=== PATIENT | female | born 1935 | race African-American/Black ===

== ENCOUNTER 2016-09-11 08:12 | Inpatient (IN) | payer MEDICAID ==
[~2016-09-11] VITALS: Ht 162.5 cm; Wt 88.2 kg
[2016-09-11 08:20] VITALS: BP 131/73
[2016-09-11 09:03] LABS: BILIRUBIN NEGATIVE (NEGATIVE); BLOOD NEGATIVE (NEGATIVE); CLARITY CLEAR (CLEAR); COLOR YELLOW (YELLOW); GLUCOSE NEGATIVE (NEGATIVE); KETONE NEGATIVE (NEGATIVE); LEUKO ESTERASE NEGATIVE (NEGATIVE); NITRITE NEGATIVE (NEGATIVE); PH 6.5 (5.0-9.0); PROTEIN NEGATIVE (NEGATIVE)
[2016-09-11 09:15] LABS: BASO % 0.2 % (0.0-1.0); EOS # 0.1 10*3/uL (0.0-0.4); HEMATOCRIT 34.9 % (37.0-47.0); HEMOGLOBIN 11.3 g/dl (12.0-16.0); LYMPH # 1.7 10*3/uL (1.3-4.4); LYMPH % 28.4 % (27.0-41.0); MEAN CELL VOLUME 93.1 fl (81.0-99.0); MEAN CORPUSCULAR HGB 30.1 pg (27.0-31.0); MEAN CORPUSCULAR HGB CONC 32.4 g/dl (33.0-37.0); MEAN PLATELET VOLUME 10.3 fl (9.6-12.3); MONO # 0.6 10*3/uL (0.1-1.0); MONO % 10.6 % (3.0-9.0); NEUT # 3.5 10*3/uL (2.3-7.9); NEUT % 59.5 % (47.0-73.0); PLATELET COUNT AUTOMATED 212 10*3/uL (130-400); RED BLOOD COUNT 3.75 10*6/uL (4.10-5.10); RED CELL DISTRI WIDTH 16.5 % (0-14.5); WHITE BLOOD COUNT 5.9 10*3/uL (4.8-10.8)
[2016-09-11 09:22] LABS: BACTERIA TRACE; MUCOUS 1+; RBC 0-2 rbc/hpf (0-2); URINE REFLEX COMMENT NO (NO)
[2016-09-11] MEDS ORDERED: AGGRENOX ER 251 CER PO (09:28)
[2016-09-11] MEDS ORDERED: CLARITIN10 MG PO (09:29)
[2016-09-11] MEDS ORDERED: ATORVASTATIN CA10 M1 PO (09:29)
[2016-09-11] MEDS ORDERED: GLIPIZIDE10 M2 PO (09:29)
[2016-09-11] MEDS ORDERED: LASIX20 MG PO (09:29)
[2016-09-11 09:30] LABS: ALBUMIN 2.8 gm/dl (3.1-4.5); ALKALINE PHOSPHATASE 55 U/L (45-117); BILIRUBIN, TOTAL 0.7 mg/dl (0.2-1.0); BUN 6 mg/dl (7-24); CARBON DIOXIDE 30 mmol/L (21-32); CHLORIDE 105 mmol/L (98-107); CPK 49 U/L (26-192); EST GLOM FILT AFRICAN AMERICAN > 60 ml/min; GLUCOSE 87 mg/dL (65-99); MAGNESIUM 1.5 mg/dL (1.5-2.1); SGOT/AST 17 IU/L (3-35); SGPT/ALT 20 U/L (12-78); SODIUM 143 mmol/L (136-145); TOTAL PROTEIN 6.2 gm/dL (6.4-8.2)
[2016-09-11] MEDS ORDERED: PENTOXIFYLLINE400 MG PO (09:30)
[2016-09-11] MEDS ORDERED: METFORMIN500 MG PO (09:30)
[2016-09-11] MEDS ORDERED: POTASSIUM CHLO10 ME4 PO (09:31)
[2016-09-11] MEDS ORDERED: PIOGLITAZONE HC30 MG PO (09:31)
[2016-09-11] MEDS ORDERED: TRAZODONE100 MG PO (09:32)
[2016-09-11] MEDS ORDERED: MILK OF MA400 MG/52 PO (09:33)
[2016-09-11] MEDS ORDERED: TYLENOL EXTRA500 M2 PO (09:33)
[2016-09-11] MEDS ORDERED: ATIVAN0.5 MG PO (09:34)
[2016-09-11 09:35] LABS: C-REACTIVE PROTEIN < 0.29 MG/DL (0-0.3); CKMB < 0.5 ng/ml (0.5-3.6); TROPONIN I < 0.015 ng/ml (<0.045)
[2016-09-11 10:03] LABS: PROTHROMBIN TIME 10.9 SECONDS (9.0-12.4)
[2016-09-11 11:12] LABS: LA>2 REFLEX 2 HR DRAW NOW
[2016-09-11 11:38] LABS: LA>2 RFLX FOLLOW UP AT 2 HRS 2.4 mmol/L (0.4-2.0)
[2016-09-11 12:00] VITALS: BP 93/70
[2016-09-11 13:25] LABS: LA>2 REFLEX 4 HR DRAW NOW
[2016-09-11 15:46] VITALS: BP 119/34
[2016-09-11 20:00] VITALS: BP 141/84
[2016-09-12 06:12] LABS: BASO % 0.4 % (0.0-1.0); EOS # 0.1 10*3/uL (0.0-0.4); EOS % 1.7 % (1.0-4.0); HEMATOCRIT 32.7 % (37.0-47.0); HEMOGLOBIN 10.5 g/dl (12.0-16.0); LYMPH # 1.5 10*3/uL (1.3-4.4); LYMPH % 32.1 % (27.0-41.0); MEAN CELL VOLUME 91.6 fl (81.0-99.0); MEAN CORPUSCULAR HGB 29.4 pg (27.0-31.0); MEAN CORPUSCULAR HGB CONC 32.1 g/dl (33.0-37.0); MEAN PLATELET VOLUME 10.5 fl (9.6-12.3); MONO # 0.5 10*3/uL (0.1-1.0); MONO % 10.3 % (3.0-9.0); NEUT # 2.6 10*3/uL (2.3-7.9); NEUT % 55.3 % (47.0-73.0); PLATELET COUNT AUTOMATED 200 10*3/uL (130-400); RED BLOOD COUNT 3.57 10*6/uL (4.10-5.10); RED CELL DISTRI WIDTH 16.1 % (0-14.5); WHITE BLOOD COUNT 4.6 10*3/uL (4.8-10.8)
[2016-09-12 06:19] LABS: HEMOGLOBIN A1c 6.8 % (4.8-5.6)
[2016-09-12 06:27] LABS: BUN 5 mg/dl (7-24); CARBON DIOXIDE 31 mmol/L (21-32); CHLORIDE 106 mmol/L (98-107); CHOLESTEROL 137 mg/dL (<200); EST GLOM FILT AFRICAN AMERICAN > 60 ml/min; FREE T4 0.98 ng/dl (0.76-1.46); GLUCOSE 87 mg/dL (65-99); HDL CHOLESTEROL 91 mg/dl (40-60); LDL CHOLESTEROL 34 mg/dL (9-159); POTASSIUM 3.7 mmol/L (3.5-5.1); SODIUM 142 mmol/L (136-145); TRIGLYCERIDES 62 mg/dl (<150); VLDL CHOLESTEROL 12 mg/dL (6-40)
[2016-09-12 07:33] LABS: VITAMIN D, 25-HYDROXY 6.3 ng/mL (30-100)
[2016-09-12 07:34] LABS: FOLIC ACID 5.99 ng/mL (>5.38)
[2016-09-12 08:00] VITALS: BP 136/78
[2016-09-12 12:00] VITALS: BP 104/61
== END 2016-09-12 15:03 | disposition home or self-care (01) | DRG 392 ==
LOC: ED 08:12 → EDHOLD 12:38 → 4E 12:38
PROVIDERS: Emergency Medicine; Internal Medicine Hospice and Palliative Medicine
DX: K59.00 Constipation, unspecified (principal); E87.2 Acidosis; E44.0 Moderate protein-calorie malnutrition; E11.65 Type 2 diabetes mellitus with hyperglycemia; K80.20 Calculus of gallbladder without cholecystitis without obstruction; K42.9 Umbilical hernia without obstruction or gangrene; D64.9 Anemia, unspecified; K57.30 Diverticulosis of large intestine without perforation or abscess without bleeding; D25.9 Leiomyoma of uterus, unspecified; I25.10 Atherosclerotic heart disease of native coronary artery without angina pectoris; E78.00 Pure hypercholesterolemia, unspecified; J30.2 Other seasonal allergic rhinitis; F41.1 Generalized anxiety disorder; E66.09 Other obesity due to excess calories; I50.9 Heart failure, unspecified; E78.1 Pure hyperglyceridemia; I25.2 Old myocardial infarction; Z80.0 Family history of malignant neoplasm of digestive organs; Z79.1 Long term (current) use of non-steroidal anti-inflammatories (NSAID); Z86.73 Personal history of transient ischemic attack (TIA), and cerebral infarction without residual deficits; Z79.4 Long term (current) use of insulin; Z79.82 Long term (current) use of aspirin; Z79.899 Other long term (current) drug therapy; Z79.84 Long term (current) use of oral hypoglycemic drugs; Z68.33 Body mass index [BMI] 33.0-33.9, adult

== ENCOUNTER 2016-10-10 05:06 | Inpatient (IN) | payer MEDICAID ==
[~2016-10-10] VITALS: Ht 165.1 cm; Wt 96.7 kg
[2016-10-10] VITALS (11 sets, daily range): BP systolic 108–169; BP diastolic 60–88
[~2016-10-10 05:06] MED LIST: AGGRENOX ER 251 CER PO; ATIVAN0.5 MG PO; ATORVASTATIN CA10 M1 PO; CLARITIN10 MG PO; GLIPIZIDE10 M2 PO; LASIX20 MG PO; METFORMIN500 MG PO; MILK OF MA400 MG/52 PO; PENTOXIFYLLINE400 MG PO; PIOGLITAZONE HC30 MG PO; POTASSIUM CHLO10 ME4 PO; TRAZODONE100 MG PO; TYLENOL EXTRA500 M2 PO
[2016-10-10] MEDS ORDERED: METFORMIN500 MG PO (05:42)
[2016-10-10 06:31] LABS: BASO % 0.2 % (0.0-1.0); EOS % 0.2 % (1.0-4.0); HEMATOCRIT 35.3 % (37.0-47.0); HEMOGLOBIN 11.5 g/dl (12.0-16.0); LYMPH # 1.2 10*3/uL (1.3-4.4); LYMPH % 23.9 % (27.0-41.0); MEAN CELL VOLUME 93.1 fl (81.0-99.0); MEAN CORPUSCULAR HGB 30.3 pg (27.0-31.0); MEAN CORPUSCULAR HGB CONC 32.6 g/dl (33.0-37.0); MEAN PLATELET VOLUME 10.2 fl (9.6-12.3); MONO # 0.3 10*3/uL (0.1-1.0); MONO % 6.8 % (3.0-9.0); NEUT # 3.3 10*3/uL (2.3-7.9); NEUT % 68.5 % (47.0-73.0); PLATELET COUNT AUTOMATED 211 10*3/uL (130-400); RED BLOOD COUNT 3.79 10*6/uL (4.10-5.10); RED CELL DISTRI WIDTH 17.3 % (0-14.5); WHITE BLOOD COUNT 4.9 10*3/uL (4.8-10.8)
[2016-10-10 06:47] LABS: ALBUMIN 2.9 gm/dl (3.1-4.5); ALKALINE PHOSPHATASE 52 U/L (45-117); BUN 9 mg/dl (7-24); CARBON DIOXIDE 27 mmol/L (21-32); CHLORIDE 103 mmol/L (98-107); EST GLOM FILT AFRICAN AMERICAN > 60 ml/min; GLUCOSE 96 mg/dL (65-99); MAGNESIUM 1.4 mg/dL (1.5-2.1); POTASSIUM 3.6 mmol/L (3.5-5.1); SGOT/AST 20 IU/L (3-35); SGPT/ALT 20 U/L (12-78); SODIUM 139 mmol/L (136-145); TOTAL PROTEIN 6.4 gm/dL (6.4-8.2)
[2016-10-10 06:51] LABS: BILIRUBIN, TOTAL 0.8 mg/dl (0.2-1.0); HEMOGLOBIN A1c 6.4 % (4.8-5.6); TROPONIN I 0.019 ng/ml (<0.045)
[2016-10-10 06:54] LABS: THYROID STIM HORMONE (HS) 0.333 uIU/ml (0.358-4.75)
[2016-10-10] MEDS ORDERED: BISAC-EVAC10 MG RC (16:08)
[2016-10-11] VITALS: BP 120/57
[2016-10-11 08:00] VITALS: BP 129/66
[2016-10-11 10:07] LABS: BASO % 0.6 % (0.0-1.0); EOS # 0.1 10*3/uL (0.0-0.4); HEMATOCRIT 35.7 % (37.0-47.0); HEMOGLOBIN 11.7 g/dl (12.0-16.0); LYMPH # 1.9 10*3/uL (1.3-4.4); LYMPH % 37.2 % (27.0-41.0); MEAN CELL VOLUME 92.2 fl (81.0-99.0); MEAN CORPUSCULAR HGB 30.2 pg (27.0-31.0); MEAN CORPUSCULAR HGB CONC 32.8 g/dl (33.0-37.0); MEAN PLATELET VOLUME 10.4 fl (9.6-12.3); MONO # 0.4 10*3/uL (0.1-1.0); MONO % 8.7 % (3.0-9.0); NEUT # 2.6 10*3/uL (2.3-7.9); NEUT % 50.9 % (47.0-73.0); PLATELET COUNT AUTOMATED 225 10*3/uL (130-400); RED BLOOD COUNT 3.87 10*6/uL (4.10-5.10); RED CELL DISTRI WIDTH 17.2 % (0-14.5); WHITE BLOOD COUNT 5.1 10*3/uL (4.8-10.8)
[2016-10-11 10:24] LABS: BUN 5 mg/dl (7-24); CARBON DIOXIDE 25 mmol/L (21-32); CHLORIDE 105 mmol/L (98-107); EST GLOM FILT AFRICAN AMERICAN > 60 ml/min; GLUCOSE 108 mg/dL (65-99); MAGNESIUM 1.5 mg/dL (1.5-2.1); PHOSPHOROUS 2.6 mg/dL (2.5-4.9); SODIUM 143 mmol/L (136-145)
[2016-10-11 12:00] VITALS: BP 155/80
[2016-10-11 16:06] VITALS: BP 126/79
== END 2016-10-11 18:18 | DRG 638 ==
LOC: ED 05:06 → EDHOLD 06:32 → 4E 06:32 → EDHOLD 07:39 → 4E 14:24
PROVIDERS: Emergency Medicine Emergency Medical Services; Internal Medicine
DX: E11.649 Type 2 diabetes mellitus with hypoglycemia without coma (principal); E44.0 Moderate protein-calorie malnutrition; F03.90 Unspecified dementia, unspecified severity, without behavioral disturbance, psychotic disturbance, mood disturbance, and anxiety; I50.9 Heart failure, unspecified; E83.42 Hypomagnesemia; R79.89 Other specified abnormal findings of blood chemistry; R03.0 Elevated blood-pressure reading, without diagnosis of hypertension; I25.10 Atherosclerotic heart disease of native coronary artery without angina pectoris; F41.1 Generalized anxiety disorder; E78.00 Pure hypercholesterolemia, unspecified; D64.9 Anemia, unspecified; E66.09 Other obesity due to excess calories; Z86.73 Personal history of transient ischemic attack (TIA), and cerebral infarction without residual deficits; I25.2 Old myocardial infarction; Z68.35 Body mass index [BMI] 35.0-35.9, adult; Z80.8 Family history of malignant neoplasm of other organs or systems; Z79.82 Long term (current) use of aspirin; Z79.899 Other long term (current) drug therapy; G45.9 Transient cerebral ischemic attack, unspecified

== ENCOUNTER 2016-12-24 12:01 | Emergency (ER) | payer MEDICAID ==
[~2016-12-24] VITALS: Ht 170.1 cm; Wt 68.0 kg
[~2016-12-24 12:01] MED LIST changes: +BISAC-EVAC10 MG RC
[2016-12-24 12:27] LABS: BASO % 0.5 % (0.0-1.0); EOS # 0.1 10*3/uL (0.0-0.4); EOS % 0.9 % (1.0-4.0); HEMATOCRIT 41.5 % (37.0-47.0); HEMOGLOBIN 13.9 g/dl (12.0-16.0); LYMPH # 1.8 10*3/uL (1.3-4.4); LYMPH % 27.5 % (27.0-41.0); MEAN CELL VOLUME 93.5 fl (81.0-99.0); MEAN CORPUSCULAR HGB 31.3 pg (27.0-31.0); MEAN CORPUSCULAR HGB CONC 33.5 g/dl (33.0-37.0); MEAN PLATELET VOLUME 10.6 fl (9.6-12.3); MONO # 0.5 10*3/uL (0.1-1.0); MONO % 7.6 % (3.0-9.0); NEUT # 4.2 10*3/uL (2.3-7.9); NEUT % 62.7 % (47.0-73.0); PLATELET COUNT AUTOMATED 201 10*3/uL (130-400); RED BLOOD COUNT 4.44 10*6/uL (4.10-5.10); RED CELL DISTRI WIDTH 14.4 % (0-14.5); WHITE BLOOD COUNT 6.6 10*3/uL (4.8-10.8)
[2016-12-24 12:39] LABS: CREATININE 1.07 mg/dL (0.55-1.02); POTASSIUM 3.1 mmol/L (3.5-5.1)
[2016-12-24 12:39] LABS: BILIRUBIN NEGATIVE (NEGATIVE); BLOOD NEGATIVE (NEGATIVE); CLARITY CLEAR (CLEAR); COLOR YELLOW (YELLOW); GLUCOSE NEGATIVE (NEGATIVE); KETONE NEGATIVE (NEGATIVE); LEUKO ESTERASE NEGATIVE (NEGATIVE); NITRITE NEGATIVE (NEGATIVE); PH 5.5 (5.0-9.0); SPECIFIC GRAVITY <= 1.005 (1.005-1.030); UROBILINOGEN 0.2 E.U./dl (0.2-1.0)
[2016-12-24 12:47] LABS: RBC 0-2 rbc/hpf (0-2)
== END 2016-12-24 13:46 | disposition home or self-care (01) ==
LOC: ED 12:01
PROVIDERS: Emergency Medicine
DX: E87.6 Hypokalemia (principal); R32 Unspecified urinary incontinence; M25.561 Pain in right knee; I25.10 Atherosclerotic heart disease of native coronary artery without angina pectoris; I25.2 Old myocardial infarction; E78.00 Pure hypercholesterolemia, unspecified; I50.9 Heart failure, unspecified; Z86.73 Personal history of transient ischemic attack (TIA), and cerebral infarction without residual deficits; E11.65 Type 2 diabetes mellitus with hyperglycemia; W06.XXXA Fall from bed, initial encounter; Z79.899 Other long term (current) drug therapy; Y93.89 Activity, other specified; Y92.89 Other specified places as the place of occurrence of the external cause; Y99.8 Other external cause status

== ENCOUNTER 2016-12-26 12:42 | Emergency (ER) | payer MEDICAID ==
[~2016-12-26] VITALS: Wt 68.0 kg
[2016-12-26 13:48] LABS: ALBUMIN 2.5 gm/dl (3.1-4.5); ALKALINE PHOSPHATASE 63 U/L (45-117); BUN 10 mg/dl (7-24); CHLORIDE 105 mmol/L (98-107); POTASSIUM 5.1 mmol/L (3.5-5.1); SGOT/AST 21 IU/L (3-35); SGPT/ALT 20 U/L (12-78); SODIUM 136 mmol/L (136-145)
== END 2016-12-26 14:11 | disposition home or self-care (01) ==
LOC: ED 12:42
PROVIDERS: Physician Assistant
DX: M25.561 Pain in right knee (principal); Z79.899 Other long term (current) drug therapy; W06.XXXA Fall from bed, initial encounter; Y93.89 Activity, other specified; Y92.89 Other specified places as the place of occurrence of the external cause; Y99.9 Unspecified external cause status

== ENCOUNTER 2016-12-28 22:37 | Inpatient (IN) | payer MEDICAID ==
[~2016-12-28] VITALS: Ht 160 cm; Wt 78.3 kg
--- NOTE | ~2016-12-28 | EKG ---
[place], [place] ELECTROCARDIOGRAM REPORT NAME: AKIN YOUNGBLOOD UNIT #: [id number] ROOM: 526 DOCTOR: LIANA PERAZA,PERICO BIRTHDATE: [birth year] DOS: 12/30/2016 TIME: 2313 hours. INTERPRETATION: 1. Sinus rhythm. 2. Nonspecific ST-T changes in the lateral leads. 3. Prolonged QT, consider electrolyte abnormality. PERICO GAINES MD CM:EKGRPT:ELECTROCARDIOGRAM REPORT [id number] PERICO GAINES MD
[2016-12-28 22:40] VITALS: BP 130/83
[2016-12-28 22:59] LABS: BASO % 0.3 % (0.0-1.0); EOS % 0.2 % (1.0-4.0); HEMATOCRIT 38.4 % (37.0-47.0); LYMPH # 0.9 10*3/uL (1.3-4.4); LYMPH % 14.4 % (27.0-41.0); MEAN CELL VOLUME 92.3 fl (81.0-99.0); MEAN CORPUSCULAR HGB 31.3 pg (27.0-31.0); MEAN CORPUSCULAR HGB CONC 33.9 g/dl (33.0-37.0); MEAN PLATELET VOLUME 10.9 fl (9.6-12.3); MONO # 0.4 10*3/uL (0.1-1.0); MONO % 6.5 % (3.0-9.0); NEUT # 4.7 10*3/uL (2.3-7.9); NEUT % 78.3 % (47.0-73.0); PLATELET COUNT AUTOMATED 241 10*3/uL (130-400); RED BLOOD COUNT 4.16 10*6/uL (4.10-5.10); RED CELL DISTRI WIDTH 14.9 % (0-14.5)
[2016-12-28 23:43] LABS: ALBUMIN 2.6 gm/dl (3.1-4.5); ALKALINE PHOSPHATASE 66 U/L (45-117); BUN 8 mg/dl (7-24); CHLORIDE 102 mmol/L (98-107); CREATININE 1.03 mg/dL (0.55-1.02); LIPASE 118 U/L (73-393); MAGNESIUM 1.3 mg/dL (1.5-2.1); POTASSIUM 4.9 mmol/L (3.5-5.1); SGOT/AST 24 IU/L (3-35); SGPT/ALT 21 U/L (12-78); SODIUM 138 mmol/L (136-145); TOTAL PROTEIN 6.5 gm/dL (6.4-8.2)
[2016-12-28 23:45] LABS: TROPONIN I 0.016 ng/ml (<0.045)
[2016-12-29 02:20] VITALS: BP 128/71
[2016-12-29 02:37] LABS: BILIRUBIN 1+ (NEGATIVE); BLOOD NEGATIVE (NEGATIVE); CLARITY SL CLOUDY (CLEAR); COLOR YELLOW (YELLOW); GLUCOSE NEGATIVE (NEGATIVE); KETONE NEGATIVE (NEGATIVE); LEUKO ESTERASE TRACE (NEGATIVE); NITRITE POSITIVE (NEGATIVE); PH 5.5 (5.0-9.0); SPECIFIC GRAVITY >= 1.030 (1.005-1.030)
[2016-12-29 02:42] LABS: BACTERIA 3+
[2016-12-29 03:00] VITALS: BP 100/55
[2016-12-29 07:03] LABS: BASO % 0.3 % (0.0-1.0); EOS % 0.2 % (1.0-4.0); HEMOGLOBIN 11.7 g/dl (12.0-16.0); LYMPH # 1.4 10*3/uL (1.3-4.4); LYMPH % 24.5 % (27.0-41.0); MEAN CELL VOLUME 93.6 fl (81.0-99.0); MEAN CORPUSCULAR HGB 31.3 pg (27.0-31.0); MEAN CORPUSCULAR HGB CONC 33.4 g/dl (33.0-37.0); MEAN PLATELET VOLUME 10.2 fl (9.6-12.3); MONO # 0.5 10*3/uL (0.1-1.0); MONO % 8.9 % (3.0-9.0); NEUT # 3.8 10*3/uL (2.3-7.9); NEUT % 65.9 % (47.0-73.0); PLATELET COUNT AUTOMATED 234 10*3/uL (130-400); RED BLOOD COUNT 3.74 10*6/uL (4.10-5.10); RED CELL DISTRI WIDTH 14.8 % (0-14.5); WHITE BLOOD COUNT 5.7 10*3/uL (4.8-10.8)
[2016-12-29 07:34] LABS: ALBUMIN 2.5 gm/dl (3.1-4.5); BUN 7 mg/dl (7-24); CHLORIDE 104 mmol/L (98-107); CHOLESTEROL 181 mg/dL (<200); CREATININE 0.81 mg/dL (0.55-1.02); MAGNESIUM 1.4 mg/dL (1.5-2.1); PHOSPHOROUS 2.8 mg/dL (2.5-4.9); SGOT/AST 19 IU/L (3-35); SGPT/ALT 20 U/L (12-78); SODIUM 142 mmol/L (136-145); TRIGLYCERIDES 87 mg/dl (<150); VLDL CHOLESTEROL 17 mg/dL (6-40)
[2016-12-29 07:35] LABS: INTERNATIONAL NORM RATIO 1.1 (2.0-3.5)
[2016-12-29 07:41] LABS: ALKALINE PHOSPHATASE 59 U/L (45-117); HDL CHOLESTEROL 73 mg/dl (40-60); LDL CHOLESTEROL 91 mg/dL (9-159); THYROID STIM HORMONE (HS) 0.958 uIU/ml (0.358-4.75); TOTAL PROTEIN 5.9 gm/dL (6.4-8.2)
[2016-12-29 07:42] LABS: POTASSIUM 3.9 mmol/L (3.5-5.1)
[2016-12-29 08:00] VITALS: BP 110/59
[2016-12-29] MEDS ORDERED: MOM30 M1 PO (10:57)
[2016-12-29] MEDS ORDERED: VITAMIN D50000 UNIT PO (10:58)
[2016-12-29 12:00] VITALS: BP 115/55
[2016-12-29 16:00] VITALS: BP 100/60
[2016-12-29 20:00] VITALS: BP 111/75
[2016-12-30] VITALS: BP 114/68
[2016-12-30 04:00] VITALS: BP 114/68
[2016-12-30 06:40] LABS: BASO % 0.8 % (0.0-1.0); EOS # 0.1 10*3/uL (0.0-0.4); EOS % 1.7 % (1.0-4.0); HEMATOCRIT 34.8 % (37.0-47.0); HEMOGLOBIN 11.3 g/dl (12.0-16.0); LYMPH # 1.6 10*3/uL (1.3-4.4); LYMPH % 33.5 % (27.0-41.0); MEAN CELL VOLUME 95.6 fl (81.0-99.0); MEAN CORPUSCULAR HGB CONC 32.5 g/dl (33.0-37.0); MEAN PLATELET VOLUME 10.3 fl (9.6-12.3); MONO # 0.4 10*3/uL (0.1-1.0); MONO % 9.1 % (3.0-9.0); NEUT # 2.6 10*3/uL (2.3-7.9); NEUT % 54.7 % (47.0-73.0); PLATELET COUNT AUTOMATED 222 10*3/uL (130-400); RED BLOOD COUNT 3.64 10*6/uL (4.10-5.10); WHITE BLOOD COUNT 4.8 10*3/uL (4.8-10.8)
[2016-12-30 06:42] LABS: BUN 6 mg/dl (7-24); CHLORIDE 109 mmol/L (98-107); CREATININE 0.73 mg/dL (0.55-1.02); POTASSIUM 3.7 mmol/L (3.5-5.1); SODIUM 142 mmol/L (136-145)
[2016-12-30 08:00] VITALS: BP 110/50
[2016-12-30 12:00] VITALS: BP 107/84
[2016-12-30 16:00] VITALS: BP 124/54; BP 84/68
[2016-12-30 20:00] VITALS: BP 119/71
[2016-12-31] VITALS: BP 122/62
[2016-12-31 07:05] LABS: ALBUMIN 2.3 gm/dl (3.1-4.5); ALKALINE PHOSPHATASE 55 U/L (45-117); BUN 4 mg/dl (7-24); CHLORIDE 112 mmol/L (98-107); CREATININE 0.69 mg/dL (0.55-1.02); POTASSIUM 3.3 mmol/L (3.5-5.1); SGOT/AST 20 IU/L (3-35); SGPT/ALT 17 U/L (12-78); SODIUM 142 mmol/L (136-145); TOTAL PROTEIN 5.5 gm/dL (6.4-8.2)
[2016-12-31 08:00] VITALS: BP 121/56
[2016-12-31 12:00] VITALS: BP 112/68
[2016-12-31 16:00] VITALS: BP 112/66
[2016-12-31 20:00] VITALS: BP 118/66
[2017-01-01] VITALS: BP 108/83
[2017-01-01 07:48] LABS: BUN 3 mg/dl (7-24); CHLORIDE 113 mmol/L (98-107); CREATININE 0.76 mg/dL (0.55-1.02); SODIUM 145 mmol/L (136-145)
[2017-01-01 07:52] LABS: POTASSIUM 4.5 mmol/L (3.5-5.1)
[2017-01-01 08:00] VITALS: BP 130/70
[2017-01-01 11:04] LABS: HEMATOCRIT 35.4 % (37.0-47.0); HEMOGLOBIN 12.3 g/dl (12.0-16.0); MEAN CELL VOLUME 92.4 fl (81.0-99.0); MEAN CORPUSCULAR HGB 32.1 pg (27.0-31.0); MEAN CORPUSCULAR HGB CONC 34.7 g/dl (33.0-37.0); MEAN PLATELET VOLUME 10.7 fl (9.6-12.3); PLATELET COUNT AUTOMATED 258 10*3/uL (130-400); RED BLOOD COUNT 3.83 10*6/uL (4.10-5.10); RED CELL DISTRI WIDTH 15.2 % (0-14.5); WHITE BLOOD COUNT 6.2 10*3/uL (4.8-10.8)
[2017-01-01 11:22] LABS: ACANTHOCYTES FEW; ATYPICAL LYMPHS 1 % (0-0); SCHISTOCYTES FEW; TOTAL CELLS COUNTED 100 #CELLS
[2017-01-01 11:23] LABS: BURR CELLS FEW; PLATELET SUFFICIENCY NORMAL (NORMAL)
[2017-01-01] MEDS ORDERED: NATURE'S BLEND F1 MG PO (12:04)
[2017-01-01] MEDS ORDERED: AMINOPHYLLIN200 MG PO (12:04)
[2017-01-01] MEDS ORDERED: PANTOPRAZOLE SO40 MG PO (12:06)
== END 2017-01-01 12:52 | disposition home or self-care (01) | DRG 683 ==
LOC: ED 22:37 → 5E 12-29 02:20 → EDHOLD 12-29 02:20 → 5E 12-29 02:33
PROVIDERS: Family Medicine; Hospitalist; Student in an Organized Health Care Education/Training Program; ADMIT Emergency Medicine
DX: N17.9 Acute kidney failure, unspecified (principal); N30.00 Acute cystitis without hematuria; E44.0 Moderate protein-calorie malnutrition; F03.90 Unspecified dementia, unspecified severity, without behavioral disturbance, psychotic disturbance, mood disturbance, and anxiety; I50.9 Heart failure, unspecified; B96.20 Unspecified Escherichia coli [E. coli] as the cause of diseases classified elsewhere; E11.9 Type 2 diabetes mellitus without complications; E53.8 Deficiency of other specified B group vitamins; E86.0 Dehydration; K29.70 Gastritis, unspecified, without bleeding; E87.6 Hypokalemia; K57.30 Diverticulosis of large intestine without perforation or abscess without bleeding; I25.10 Atherosclerotic heart disease of native coronary artery without angina pectoris; F41.1 Generalized anxiety disorder; E78.00 Pure hypercholesterolemia, unspecified; E66.9 Obesity, unspecified; E78.5 Hyperlipidemia, unspecified; Z79.82 Long term (current) use of aspirin; Z79.899 Other long term (current) drug therapy; I25.2 Old myocardial infarction; Z68.28 Body mass index [BMI] 28.0-28.9, adult; Z86.73 Personal history of transient ischemic attack (TIA), and cerebral infarction without residual deficits; Z80.8 Family history of malignant neoplasm of other organs or systems

== ENCOUNTER 2017-01-14 13:48 | Inpatient (IN) | payer MEDICAID ==
[~2017-01-14] VITALS: Ht 165.1 cm; Wt 90.7 kg
[~2017-01-14 13:48] MED LIST changes: +AMINOPHYLLIN200 MG PO; +MOM30 M1 PO; +NATURE'S BLEND F1 MG PO; +PANTOPRAZOLE SO40 MG PO; +VITAMIN D50000 UNIT PO
[2017-01-14 13:57] VITALS: BP 110/80
[2017-01-14 15:39] LABS: BASO % 0.5 % (0.0-1.0); EOS % 0.2 % (1.0-4.0); HEMATOCRIT 36.4 % (37.0-47.0); HEMOGLOBIN 11.8 g/dl (12.0-16.0); LYMPH # 1.1 10*3/uL (1.3-4.4); LYMPH % 18.9 % (27.0-41.0); MEAN CELL VOLUME 96.8 fl (81.0-99.0); MEAN CORPUSCULAR HGB 31.4 pg (27.0-31.0); MEAN CORPUSCULAR HGB CONC 32.4 g/dl (33.0-37.0); MEAN PLATELET VOLUME 10.3 fl (9.6-12.3); MONO # 0.5 10*3/uL (0.1-1.0); NEUT # 4.1 10*3/uL (2.3-7.9); NEUT % 72.1 % (47.0-73.0); PLATELET COUNT AUTOMATED 218 10*3/uL (130-400); RED BLOOD COUNT 3.76 10*6/uL (4.10-5.10); RED CELL DISTRI WIDTH 16.1 % (0-14.5); WHITE BLOOD COUNT 5.7 10*3/uL (4.8-10.8)
[2017-01-14 15:49] LABS: ACT PARTIAL THROMBO TIME 22.4 SECONDS (20.8-31.5); INTERNATIONAL NORM RATIO 1.1 (2.0-3.5)
[2017-01-14 15:56] LABS: ALBUMIN 2.4 gm/dl (3.1-4.5); ALKALINE PHOSPHATASE 58 U/L (45-117); BUN 5 mg/dl (7-24); CHLORIDE 106 mmol/L (98-107); CPK 51 U/L (26-192); CREATININE 0.81 mg/dL (0.55-1.02); LIPASE 102 U/L (73-393); MAGNESIUM 1.3 mg/dL (1.5-2.1); POTASSIUM 4.1 mmol/L (3.5-5.1); SGOT/AST 18 IU/L (3-35); SGPT/ALT 15 U/L (12-78); SODIUM 139 mmol/L (136-145); TOTAL PROTEIN 5.8 gm/dL (6.4-8.2); TROPONIN I 0.018 ng/ml (<0.045)
[2017-01-14 15:58] LABS: CKMB < 0.5 ng/ml (0.5-3.6)
--- NOTE | 2017-01-14 16:11 | NUR ---
CHECKED ON PATIENT, ADVISED HER THAT URINE IS NEEDED, NO COMPLAINTS AT THIS TIME OF PAIN OR DISCOMFORT. ADVISED HER THAT IF SHE NEEDS SOMETHING CALL LIGHT IN REACH.
--- NOTE | 2017-01-14 16:32 | NUR ---
PATIENT TO CAT SCAN AT THIS TIME
[2017-01-14 17:52] VITALS: BP 118/55
[2017-01-14 18:11] LABS: BILIRUBIN NEGATIVE (NEGATIVE); BLOOD NEGATIVE (NEGATIVE); CLARITY CLEAR (CLEAR); COLOR YELLOW (YELLOW); GLUCOSE NEGATIVE (NEGATIVE); KETONE NEGATIVE (NEGATIVE); LEUKO ESTERASE NEGATIVE (NEGATIVE); NITRITE NEGATIVE (NEGATIVE); PH 5.5 (5.0-9.0); UROBILINOGEN 0.2 E.U./dl (0.2-1.0)
[2017-01-14 18:32] LABS: WBC 0-2 wbc/hpf (0-5)
[2017-01-14 19:37] VITALS: BP 115/70
[2017-01-14 20:00] VITALS: BP 129/87
--- NOTE | 2017-01-14 21:00 | NUR ---
CALLED AND SPOKE TO [facility]. THEY WILL FAX OVER A COPYOF MED LIST AND CODE STATUS PAPERWORK
--- NOTE | 2017-01-14 21:30 | NUR ---
Time: 2129 A 81 year old FEMALE admitted to 4E under services of JAIRO ADAMS DO. Pt. arrived via bed from ER. Chief complaint: FALL. MADDY TYSON
--- NOTE | 2017-01-14 21:57 | NUR ---
PT PULLED OUT IV, NEW IV STARTED LEFT ARM.
--- NOTE | 2017-01-14 22:21 | NUR ---
ONE TIME DOSE OF HALDOL GIVEN PER DR TAMMY CHRISTIANSON
[2017-01-15] VITALS: BP 105/75
--- NOTE | 2017-01-15 00:13 | NUR ---
NO FAX RECEIVED. CALLED [facility] BACK, THEY WILL NOTIFY THE NURSE THAT PAPERWORK WAS NOT RECEIVED
--- NOTE | 2017-01-15 00:14 | NUR ---
MED REC UNABLE TO BE COMPLETED. PT CONFUSED AND NO MED LIST PROVIDED.
--- NOTE | 2017-01-15 02:00 | NUR ---
SLEEPING. RESP EASY AND NONLABORED ON ROOM AIR. NO DISTRESS NOTED. BED ALARM ON. CALL LIGHT IN REACH. WILL CONTINUE TO MONITOR.
[2017-01-15 06:23] LABS: BASO % 0.5 % (0.0-1.0); EOS # 0.1 10*3/uL (0.0-0.4); EOS % 0.9 % (1.0-4.0); HEMOGLOBIN 11.4 g/dl (12.0-16.0); LYMPH # 1.5 10*3/uL (1.3-4.4); LYMPH % 25.3 % (27.0-41.0); MEAN CELL VOLUME 94.3 fl (81.0-99.0); MEAN CORPUSCULAR HGB 30.7 pg (27.0-31.0); MEAN CORPUSCULAR HGB CONC 32.6 g/dl (33.0-37.0); MEAN PLATELET VOLUME 10.8 fl (9.6-12.3); MONO # 0.5 10*3/uL (0.1-1.0); MONO % 9.4 % (3.0-9.0); NEUT # 3.7 10*3/uL (2.3-7.9); NEUT % 63.7 % (47.0-73.0); PLATELET COUNT AUTOMATED 215 10*3/uL (130-400); RED BLOOD COUNT 3.71 10*6/uL (4.10-5.10); RED CELL DISTRI WIDTH 15.9 % (0-14.5); WHITE BLOOD COUNT 5.7 10*3/uL (4.8-10.8)
--- NOTE | 2017-01-15 06:35 | NUR ---
PT PULLED OUT IV. NEW IV STARTED RIGHT HAND.
[2017-01-15 06:43] LABS: INTERNATIONAL NORM RATIO 1.1 (2.0-3.5)
[2017-01-15 06:45] LABS: ALBUMIN 2.4 gm/dl (3.1-4.5); ALKALINE PHOSPHATASE 53 U/L (45-117); BUN 5 mg/dl (7-24); CHLORIDE 104 mmol/L (98-107); CHOLESTEROL 190 mg/dL (<200); CREATININE 0.74 mg/dL (0.55-1.02); FREE T4 1.17 ng/dl (0.76-1.46); HDL CHOLESTEROL 88 mg/dl (40-60); LDL CHOLESTEROL 81 mg/dL (9-159); MAGNESIUM 1.6 mg/dL (1.5-2.1); PHOSPHOROUS 2.7 mg/dL (2.5-4.9); POTASSIUM 3.6 mmol/L (3.5-5.1); SGOT/AST 21 IU/L (3-35); SGPT/ALT 15 U/L (12-78); SODIUM 140 mmol/L (136-145); TOTAL PROTEIN 5.4 gm/dL (6.4-8.2); TRIGLYCERIDES 106 mg/dl (<150); VLDL CHOLESTEROL 21 mg/dL (6-40)
--- NOTE | 2017-01-15 07:15 | NUR ---
IN TO SEE PATIENT.
[2017-01-15 07:31] LABS: VITAMIN D, 25-HYDROXY 60.9 ng/mL (30-100)
[2017-01-15 08:00] VITALS: BP 103/68
--- NOTE | 2017-01-15 08:30 | NUR ---
UPHOLSTERY SEWER VS. PT COMES FROM [facility] AND PLANS TO RETURN UPON DC.
--- NOTE | 2017-01-15 09:26 | NUR ---
IN TO SEE PATIENT.
[2017-01-15 12:00] VITALS: BP 119/62
--- NOTE | 2017-01-15 14:58 | NUR ---
FLU VACCINE ADMINISTERED TO LEFT DELTOID PER POLICY.
--- NOTE | 2017-01-15 15:01 | NUR ---
Dr Hurtado requested patient goes to a snf for rehab prior to returning to assisted living. In to discuss with patient and presented a list of skilled facilities. Patient asked to be referred to the [facility]. Contacted [facility] and faxed referral.
[2017-01-15 16:00] VITALS: BP 129/69
--- NOTE | 2017-01-15 16:33 | NUR ---
PHYSICAL THERAPY PAtient evaluated on 4, full evaluation to follow. Contiue with PT as per plan of care with fall and acute debility precautions. Return to (A) living as prior with PT versus SNF for impaired mobility. PAtient is moderate complexity via chart review, tests and evaluation: 65595. Thank you for this referral. Nelsy Bueno,PT
--- NOTE | 2017-01-15 18:05 | NUR ---
PT MEDICATED WITH PO ATIVAN AND PO TYLENOL PER PRN ORDER FOR C/O ANXIETY AND LEG DISCOMFORT. WILL MONITOR EFFECTIVENESS. CALL LIGHT WITHIN REACH.
[2017-01-15 20:00] VITALS: BP 122/71
[2017-01-16] VITALS: BP 113/60
[2017-01-16 08:00] VITALS: BP 95/55
--- NOTE | 2017-01-16 08:07 | NUR ---
Waiting on acceptance from [facility]
--- NOTE | 2017-01-16 08:22 | NUR ---
PHYSICAL THERAPY I ask Cristy when she would like to have her therapy treatment this morning. Pt said NO, never. Will stop back later today. GUNNER DILL LOAN ASSISTANT.
--- NOTE | 2017-01-16 09:01 | NUR ---
PT. SLEEPING UPON ENTERING ROOM, AWAKENED EASILY TO VERBAL CALL. PT. ALERT TO SELF ONLY, RE-ORIENTED TO PLACE AND TIME. IV PULLED OUT ON COUNTER. IV SITE ASYMPTOMATIC OF TRAUMA. BED IN LOWEST POSITION, WHEELS LOCKED, CALL LIGHT WITHIN REACH. SEE SHIFT ASSESSMENT.
--- NOTE | 2017-01-16 11:09 | NUR ---
PHYSICAL THERAPY Back to see Mrs Russo and she said she would try. Pt with bed alarm on, transfer supine/sit, sitting balance MOD A X 1, sit X 5 min. Sit/stand and up on wheeled walker standing balance MOD A X 1. Then gait 40' X 2, with W/W and MOD SUPERVISOR ASPHALT PAVING X 1, cueing for safety, one sitting rest and did better then i thought she was going to do. End with act Ex to bilateral LE of ashley, PAVAN's, ankle pumps working in 20 reps each with cueing for each Ex. Pt with body alarm on, call light and phone, treatment time 25 min. GUNNER DILL HEALTH INFORMATION ASSISTANT.
[2017-01-16 11:30] VITALS: BP 132/62
--- NOTE | 2017-01-16 12:05 | NUR ---
Occupational Therapy evaluatio completed this date on 4 with full eval to follow. Precautions include fall risk, impaired cognition, new ww use, new left ankle pain, dizzy with standing, moderate complexity level. Recommend OT per POC and SNF to enable safe return to PLOF. Thank you for this referral. Salud Bryan OTR/l
--- NOTE | 2017-01-16 14:49 | NUR ---
Patient is being discharged back to [facility], spoke with Joan from [facility] who stated patient is fine to return. Patient normally takes [employer] for transportation which is unavailable, patient is fine with taking a taxi cab. Will set up.
[2017-01-16 16:00] VITALS: BP 113/54
--- NOTE | 2017-01-16 16:00 | NUR ---
DISCHARGED TO [facility]. ATTEMPTED TO CALL REPORT NO ANSWER.
--- NOTE | 2017-01-17 07:47 | NUR ---
PHYSICAL THERAPY CO-SIGN I approve of the Phyical Therapy notes written above. ZULLY BISHOP PT
== END 2017-01-16 16:56 | disposition home or self-care (01) | DRG 947 ==
LOC: ED 13:48 → 4E 18:34 → EDHOLD 18:34 → 4E 19:04
PROVIDERS: Emergency Medicine; Hospitalist; ADMIT Internal Medicine
DX: R53.1 Weakness (principal); E43 Unspecified severe protein-calorie malnutrition; E11.65 Type 2 diabetes mellitus with hyperglycemia; F03.90 Unspecified dementia, unspecified severity, without behavioral disturbance, psychotic disturbance, mood disturbance, and anxiety; I50.9 Heart failure, unspecified; D64.9 Anemia, unspecified; R26.81 Unsteadiness on feet; K57.30 Diverticulosis of large intestine without perforation or abscess without bleeding; I25.10 Atherosclerotic heart disease of native coronary artery without angina pectoris; F41.1 Generalized anxiety disorder; E83.42 Hypomagnesemia; E78.00 Pure hypercholesterolemia, unspecified; Z66 Do not resuscitate; Z51.5 Encounter for palliative care; Y93.01 Activity, walking, marching and hiking; W01.0XXA Fall on same level from slipping, tripping and stumbling without subsequent striking against object, initial encounter; Z79.899 Other long term (current) drug therapy; Z79.82 Long term (current) use of aspirin; Z86.73 Personal history of transient ischemic attack (TIA), and cerebral infarction without residual deficits; I25.2 Old myocardial infarction; Z87.440 Personal history of urinary (tract) infections; Z80.0 Family history of malignant neoplasm of digestive organs; Y92.89 Other specified places as the place of occurrence of the external cause; Y99.8 Other external cause status; Z68.33 Body mass index [BMI] 33.0-33.9, adult

== ENCOUNTER 2017-01-19 18:57 | Inpatient (IN) | payer MEDICAID ==
[~2017-01-19] VITALS: Ht 154.9 cm; Wt 74.9 kg
--- NOTE | ~2017-01-19 | PR ---
[place], [place] PROGRESS NOTE NAME: AKIN YOUNGBLOOD UNIT #: [id number] ROOM: 317 DOCTOR: KAYLEIGH ISAACS MD BIRTHDATE: [birth year] DOS: CHIEF COMPLAINT: "What you mean by calling me Kirit, I am not Kirit." SUMMARY OF THE VISIT: The patient was reclining in a Krissy chair with the covers pulled over her head. I erroneously approached her believing that she was a new male patient on the unit and called out his name, which was Kirit. She immediately pulled the covers off of her head and very angrily chastised me for calling her the wrong name. She did engage in very brief superficial conversation, but for the most part, was dismissive and did not want to talk to me. She continues to be somewhat irritable and short fused. She also exhibits some cognitive loss and does need to be redirected and supported. She is tolerating the current medication regimen well and I see no sedation, somnolence or other side effects from the medications themselves. Nurses continue to report that she has episodic bouts of agitation, but for the most part is easily redirectable. MENTAL STATUS: She is alert and oriented to self, place, but not time. Mood does seem to still be labile, but redirectable. There is no evident of hypomania or arslan. There are no psychotic symptoms present, I see no paranoia. I see no delusions. There are no auditory or visual hallucinations. Short term memory is poor. PLAN: At this point, I will begin to augment her Exelon patch with Namenda starting at 5 mg a day and planning to titrate upward as needed and as tolerated. We will maintain her current psychotropic regimen otherwise and continue to explore outpatient placement options for her when she is psychiatrically stable. KAYLEIGH ISAACS MD CM:PNTRANS 5 [phone] KAYLEIGH ISAACS MD 01/25/17308 interface
--- NOTE | ~2017-01-19 | PR ---
[place], [place] PROGRESS NOTE NAME: AKIN YOUNGBLOOD UNIT #: [id number] ROOM: 317 DOCTOR: MEG LOPES BIRTHDATE: [birth year] DOS: 01/27/2017 CHIEF COMPLAINT: "Good morning." SUMMARY OF VISIT: The patient was assessed in her room. She engaged in a limited conversation. Nursing states that medically they feel that she is overall doing poorly. Nothing in the labs are really jumping out other than her calcium was low, but improving. She did have a urinary tract infection upon admission; however, I did note that her valproic acid level was supratherapeutic. It is in the toxic range of 108.9, so I do not know if medically she is off or if it is because of the Depakote. Her valproic acid level from the Depakote is too high. No specific voice complaints with me today. MENTAL STATUS: She is alert and oriented to person, place, I do not think time. Mood still can be labile at times. Her affect is flat, blunted. No overt signs of auditory or visual hallucinations, delusions, paranoia, arslan, or hypomania. Poor memory. PLAN: She is on the maximum dose of the Exelon patch. We will keep that where it is at. She is on Namenda. We will go ahead and increase it to the maximum dose of 10 mg twice a day with regards to her valproic acid level. I have discussed with nursing. We are going to hold her Depakote for 2 days and then I will restart it at a lower dose. She is currently receiving 250 mg twice a day and 500 mg at night. I am going to decrease it by a total some of 250 mg, so she will get 250 mg t.i.d. and that will start on 01/29/2017. Again, I have discussed with her nurses. We will hold for 2 days and then I will recheck a valproic acid level in 4 days and go from there. TALITA LOPES CNP CM:PNTRANS [phone] MEG LOPES 01/29/17 0402 interface
--- NOTE | ~2017-01-19 | DS ---
[place], [place] DISCHARGE SUMMARY NAME: AKIN YOUNGBLOOD UNIT #: [id number] ROOM: 317 DOCTOR: KAYLEIGH ISAACS MD BIRTHDATE: [birth year] DOS: 01/28/2017 CHIEF COMPLAINT: "You know I do not want breakfast. I do not do breakfast, I do not to lunch, you should know that, get out of my room now." HISTORY OF PRESENT ILLNESS: This is an 81-year-old black female [facility] The patient has had multiple falls in the last several weeks prior to this admission and has become increasingly more verbally and physically combative with staff. She has been resistant to care and has not been cooperating. She has been noncompliant with her medications at times. She has escalated to the point of physical aggression towards other residents and staff, necessitating this admission to prevent harm to self and others. She is admitted now to rule out organic factors to stabilize on medication and find the least restrictive environment to find when stable. PAST MEDICAL HISTORY: Remarkable for vitamin D deficiency, hypertension, multiple allergies . SUMMARY OF HOSPITAL COURSE: The patient was admitted to the unit where she was started on Depakote 250 mg twice daily and 500 mg at bedtime to decrease impulsivity and mood lability. Exelon and Namenda were both started at her minimum dose, Exelon at 4.6 and Namenda at 5 mg a day. Both of these were titrated during her stay to the maximum dose of Exelon patch 13.3 mg daily and Namenda 10 mg twice daily. Ultimately, her valproic acid level was high when checked on 01/26/2017 at 108.9, so the dose was lowered to 250 mg 3 times daily. Because there was a secondary depressive component to her symptoms, Remeron 15 mg was utilized. It was hoped that this would aid sleep and dramatically improve appetite. She tolerated the medication combination well and for the most part, was much more compliant in the sense that she was not escalating to the point of physical aggression. She, at times, was verbally irritable, but she did redirect with prompting. She had improved sufficiently by 01/28/2017 to go to an alternative living situation. She will be going to [facility] where more stringent supervision will be present and I will be able to follow her upon her return. MENTAL STATUS AT DISCHARGE: She is alert and oriented to person, place and approximate to time. Mood is still labile, but is usually situationally based and she redirects. There is no hypomania or arslan. There are no overt auditory or visual hallucinations, delusions or paranoia. Short-term memory has gaps, otherwise she is intact. FINAL DIAGNOSES: Major depression, recurrent and mood disorder, not otherwise specified as well as Alzheimer's dementia. PLAN: All of her prescriptions have been printed and will be sent with her to [facility]. I will follow her upon her admission there. [place], [place] DISCHARGE SUMMARY NAME: AKIN YOUNGBLOOD UNIT #: [id number] ROOM: [facility] DOCTOR: KAYLEIGH ISAACS MD BIRTHDATE: [birth year] KAYLEIGH ISAACS MD CM:DISCHARG [id number] KAYLEIGH ISAACS MD 01/29/17 0626 interface
--- NOTE | ~2017-01-19 | PR ---
[place], [place] PROGRESS NOTE NAME: AKIN YOUNGBLOOD UNIT #: [id number] ROOM: 317 DOCTOR: KAYLEIGH ISAACS MD BIRTHDATE: [birth year] DOS: 01/23/2017 CHIEF COMPLAINT: "What are you doing here, I don't need nothing from you, you know that." SUMMARY OF THE VISIT: The patient was interviewed as she rested in bed. As I cracked open the door and stepped in she became rather short and terse with me; however, as I persisted and attempted to redirect, she calmed and actually joked with me. She reported that she did not want breakfast as she knew that I knew already and that she just wanted to be left alone. She denies pain or discomfort. She denies any medication side effects. She is anxious to know when she will be leaving here and when I told her that this was unknown, again she joked somewhat angrily at me, but nonetheless it was in a joking fashion. Outwardly, she seems to be tolerating her current medication regimen well. MENTAL STATUS: She is alert and oriented to person, place, but not necessarily time. Mood seems still labile, but again some of this is baseline personality. There is no overt hypomania or arslan. There are no overt auditory or visual hallucinations. No delusions are present. It is unclear whether there is a persistent paranoia or if this is personality. Short term memory is poor. PLAN: I will go ahead and maximize the dose of Exelon patch from 9.5 to 13.3 mg daily, continue to make efforts to engage her in individual and anderson milieu activity, continue to explore placement options and discharge then when psychiatrically stable. KAYLEIGH ISAACS MD CM:PNTRANS [phone] KAYLEIGH ISAACS MD 01/24/17 1546 interface
--- NOTE | ~2017-01-19 | PR ---
[place], [place] PROGRESS NOTE NAME: AKIN YOUNGBLOOD UNIT #: [id number] ROOM: 317 DOCTOR: KAYLEIGH ISAACS MD BIRTHDATE: [birth year] DOS: CHIEF COMPLAINT: "Oh hi there, how are you." SUMMARY OF THE VISIT: The patient was interviewed as she actually sat in a chair by her bed, eating her breakfast. For the first time, she was welcoming to me and did not tell me to leave her room and she actually engaged in brief but superficial conversation. She was pleasant and even joked with me. There was no verbal or physical aggression, no mood lability. MENTAL STATUS: She remains alert and oriented to person, place, but not time. Mood does seem to be slightly more euthymic. Affect is more appropriate. There are no symptoms of arslan or hypomania. There are no overt auditory or visual hallucinations. No delusions, no paranoia. Memory has gaps. PLAN: I will go ahead and increase her Exelon patch from 4.6 to 9.5 daily. Continue to engage her in individual and anderson milieu activity with the plan to look to admit to a long-term care facility due to her underlying Alzheimer dementia. KAYLEIGH ISAACS MD CM:PNTRANS [phone] KAYLEIGH ISAACS MD 01/22/17 2356 interface
--- NOTE | ~2017-01-19 | PR ---
[place], [place] PROGRESS NOTE NAME: AKIN YOUNGBLOOD UNIT #: [id number] ROOM: 317 DOCTOR: KAYLEIGH ISAACS MD BIRTHDATE: [birth year] DOS: CHIEF COMPLAINT: "I don't want breakfast. I told you that already, are you stupid." SUMMARY OF THE VISIT: The patient was attempted to be interviewed in her room. She was sitting on the edge of the bed. As I entered, I did ask if she needed help and she very angrily told me no. Likewise, she also refused my efforts to engage her to get breakfast. When I asked her if she has eaten anything since she has been here, she yelled at me she has been here 20 years, what do I think. Nurses report that she does eat sporadically, but not very much and she is very much seclusive and isolative to her room. MENTAL STATUS: She is alert and oriented with significant time gaps. Mood seems depressed. She does appear rather flat and blunted. She is rather negativistic in her thinking and very nihilistic. Her responses tend to be short and terse. There is no hypomania or arslan. There are no auditory or visual hallucinations. Short term memory is poor. PLAN: Given the fact that there is a depressive component present and her appetite is affected, I will start her on Remeron 15 mg at bedtime. We will continue to attempt to engage her in individual and anderson milieu activity with the ultimate plan to return to the least restrictive environment when stable. KAYLEIGH ISAACS MD CM:PNTRANS [phone] KAYLEIGH ISAACS MD 01/22/17 0512 interface
--- NOTE | ~2017-01-19 | WRIGHTHP ---
[place], [place] PATIENT HISTORY AND PHYSICAL EXAM NAME: AKIN YOUNGBLOOD UNIT #: [id number] ROOM: 317 DOCTOR: KAYLEIGH ISAACS MD BIRTHDATE: [birth year] DOS: 01/20/2017 INITIAL PSYCHIATRIC EVALUATION. CHIEF COMPLAINT: "You know I don't want breakfast, I don't do the breakfast, I don't do lunch, you should know that, get out of my room." HISTORY OF PRESENT ILLNESS: This is an 81-year-old black female [facility]. The patient has had multiple falls in the last several weeks and has become increasingly more verbally and physically combative. She is resistant to care and has not been cooperating. She has been noncompliant with medications at times. She has been physically aggressive towards other residents and staff necessitating this admission to prevent harm to self and others. She is admitted now to rule out organic factors to attempt to stabilize on medication, ultimately returning back to the assisted living or an alternative facility when stable. PAST MEDICAL HISTORY: Remarkable for vitamin D deficiency, hypertension, allergies, pain. The patient is a poor historian and would not cooperate. I do not see a history in the chart indicating a previous psychiatric history or history of substance abuse. MENTAL STATUS: The patient is alert and oriented to self only. She is very short fused, irritable with terse responses, very dismissive. There are no symptoms suggestive of auditory or visual hallucinations. No delusions were voiced. No paranoia is present, although again she did not cooperate with my interview. Short term memory has gaps as she could not tell me how long she had been here or what transpired to lead her into the hospital. DIAGNOSIS: Mood disorder, not otherwise specified. PLAN: At this point, I will start her on Depakote 250 mg twice daily and 500 mg at bedtime to decrease her impulsivity and mood lability. Some of this impulsivity is leading to her falls as her safety awareness is very poor. I will start her on Exelon patch 4.6 mg a day. This is to help improve or maintain ADLs, behavior and cognition. We will monitor her, engage her in individual and anderson milieu activity, returning to the least restrictive environment when stable. [place], [place] PATIENT HISTORY AND PHYSICAL EXAM NAME: AKIN YOUNGBLOOD UNIT #: [id number] ROOM: [facility] DOCTOR: KAYLEIGH ISAACS MD BIRTHDATE: [birth year] KAYLEIGH ISAACS MD CM:HISPHYS:PATIENT HISTORY AND PHYSICAL EXAMINATION [phone] KAYLEIGH ISAACS MD 01/20/17 1109 interface
--- NOTE | ~2017-01-19 | PR ---
[place], [place] PROGRESS NOTE NAME: AKIN YOUNGBLOOD UNIT #: [id number] ROOM: 317 DOCTOR: KAYLEIGH ISAACS MD BIRTHDATE: [birth year] DOS: 01/20/2017 CHIEF COMPLAINT: "You know, I don't want breakfast. Why you keep asking me?" SUMMARY OF THE VISIT: The patient was interviewed as she slept in her bed. She continues to be rather feisty and cantankerous in the morning. She still, however, deflects when you do interject humor. She may be verbally abusive, but there has not been any physical abusiveness noted. She does seem to be tolerating her current medication regimen well. MENTAL STATUS: She is alert and oriented with some time gaps. Mood does seem to be fairly euthymic. There is some irritability, but it is redirectable. There is no hypomania or arslan. There are no overt auditory or visual hallucinations. No delusions, no paranoia. Short term memory has gaps. PLAN: I will increase her Namenda from 5 mg a day to 5 mg twice a day, check a valproic acid level in the morning to make certain that it is therapeutic. Continue to engage in individual and anderson milieu activities, explore possible placement options, discharging then when psychiatrically stable. KAYLEIGH ISAACS MD CM:PNTRANS [phone] KAYLEIGH ISAACS MD 01/26/17 0539 interface
--- NOTE | ~2017-01-19 | PR ---
[place], [place] PROGRESS NOTE NAME: AKIN YOUNGBLOOD UNIT #: [id number] ROOM: 317 DOCTOR: KAYLEIGH ISAACS MD BIRTHDATE: [birth year] DOS: 01/26/2017 CHIEF COMPLAINT: "What are you doing waking up so early?" ." SUMMARY OF THE VISIT: The patient was interviewed as she was resting in bed. As I awoke her, she became very upset and angry. She is not normally a morning person. She was irritable, but quickly redirected herself. She offered no other complaints. MENTAL STATUS: She is alert and oriented to person, possibly place, but not time. Mood does seem to be trending towards euthymia. Affect is more appropriate. There is no arslan or hypomania. There are no auditory or visual hallucinations. No delusions, no paranoia. Memory for short term events is poor. PLAN: I will go ahead and increase her Namenda to 15 mg a day with a target dose of 20 mg a day to augment the cholinesterase inhibitor, engage in individual and anderson milieu activity, returning to the least restrictive environment when stable. KAYLEIGH ISAACS MD CM:PNTRANS [phone] KAYLEIGH ISAACS MD 01/29/17 0626 interface
[2017-01-19 19:01] VITALS: BP 128/79
--- NOTE | 2017-01-19 19:10 | NUR ---
PATIENT INFORMED THAT WE WOULD NEED A URINE SPECIMEN, PATIENT DOES NOT HAVE TO URINATE AT THIS TIME. PATIENT GIVEN CALL LIGHT SHE WILL LET ME KNOW WHEN SHE IS ABLE. PATIENT REPORTS SHE WILL USE A BEDSIDE COMODE WHEN READY.
--- NOTE | 2017-01-19 19:55 | NUR ---
[facility] CALLED FOR DR. JUAREZ FOR NURSE TO GIVE UPDATE.
[2017-01-19 19:57] LABS: BASO % 0.5 % (0.0-1.0); EOS % 0.5 % (1.0-4.0); HEMATOCRIT 39.4 % (37.0-47.0); HEMOGLOBIN 12.9 g/dl (12.0-16.0); LYMPH # 1.6 10*3/uL (1.3-4.4); LYMPH % 28.2 % (27.0-41.0); MEAN CELL VOLUME 95.4 fl (81.0-99.0); MEAN CORPUSCULAR HGB 31.2 pg (27.0-31.0); MEAN CORPUSCULAR HGB CONC 32.7 g/dl (33.0-37.0); MEAN PLATELET VOLUME 10.3 fl (9.6-12.3); MONO # 0.5 10*3/uL (0.1-1.0); MONO % 8.8 % (3.0-9.0); NEUT # 3.4 10*3/uL (2.3-7.9); NEUT % 61.8 % (47.0-73.0); PLATELET COUNT AUTOMATED 254 10*3/uL (130-400); RED BLOOD COUNT 4.13 10*6/uL (4.10-5.10); RED CELL DISTRI WIDTH 15.8 % (0-14.5); WHITE BLOOD COUNT 5.6 10*3/uL (4.8-10.8)
[2017-01-19 20:12] LABS: ALBUMIN 2.7 gm/dl (3.1-4.5); ALKALINE PHOSPHATASE 62 U/L (45-117); BUN 8 mg/dl (7-24); CHLORIDE 106 mmol/L (98-107); CREATININE 0.77 mg/dL (0.55-1.02); LIPASE 98 U/L (73-393); MAGNESIUM 1.9 mg/dL (1.5-2.1); POTASSIUM 3.9 mmol/L (3.5-5.1); SGOT/AST 17 IU/L (3-35); SGPT/ALT 17 U/L (12-78); SODIUM 141 mmol/L (136-145); TOTAL PROTEIN 6.2 gm/dL (6.4-8.2)
--- NOTE | 2017-01-19 20:19 | NUR ---
PATIENT RESTING IN BED WITH EYES CLOSED. RESPIRATIONS EASY AND REGULAR. CALL LIGHT WITHIN REACH. WILL CONTINUE TO MONITOR.
[2017-01-19 20:31] LABS: BILIRUBIN 1+ (NEGATIVE); BLOOD NEGATIVE (NEGATIVE); CLARITY CLEAR (CLEAR); COLOR YELLOW (YELLOW); GLUCOSE NEGATIVE (NEGATIVE); KETONE TRACE (NEGATIVE); LEUKO ESTERASE NEGATIVE (NEGATIVE); NITRITE NEGATIVE (NEGATIVE); PH 5.5 (5.0-9.0); SPECIFIC GRAVITY 1.025 (1.005-1.030)
[2017-01-19 20:44] LABS: BACTERIA TRACE; RBC 0-2 rbc/hpf (0-2)
[2017-01-19 20:46] LABS: URINE AMPHETAMINES < 1000 (1000ng/ml); URINE BARBITURATES < 200 (200ng/ml); URINE BENZODIAZEPINES < 200 (200ng/ml); URINE CANNABINOIDS (THC) < 50 (50ng/ml); URINE COCAINE < 300 (300ng/ml); URINE METHADONE < 300 (300ng/ml); URINE OPIATES < 300 (300ng/ml)
[2017-01-19 20:48] LABS: URINE PHENCYCLIDINE < 25 (25ng/ml)
--- NOTE | 2017-01-19 22:09 | NUR ---
SANJANA BRADFORD INFORMED PATIENT IS GETTING ADMITTED TO [facility]. [facility] ACCEPTED AND GAVE VERBAL CONSENT TO ADMISSION.
--- NOTE | 2017-01-19 22:12 | NUR ---
[facility] CALLED AND GIVEN AN UPDATE ON PATIENT, STAFF THERE GIVEN [facility]'S PHONE NUMBER SO THAT THEY CAN GO OVER PATIENT'S MEDICATIONS AND PAST MEDICAL HISTORY.
--- NOTE | 2017-01-19 23:24 | NUR ---
PATIENT SITTING UP IN BED. CALL LIGHT WITHIN REACH. NO NEEDS VOICED.
--- NOTE | 2017-01-20 | NUR ---
PATIENT UNABLE TO BE ACCEPTED AT [facility] UNTIL [facility] GETS A HOLD OF NURSE FROM [facility] AND ALSO NEED TO TALK TO THE LEGAL GUARDIAN THAT IS NOT ANSWERING HIS PHONE AT THIS TIME. WILL CONTINUE TO MONITOR.
[2017-01-20 00:04] VITALS: BP 128/89
--- NOTE | 2017-01-20 02:03 | NUR ---
RESTING IN BED QUIETLY. RESPS EASY NO DISTRESS.
--- NOTE | 2017-01-20 02:49 | NUR ---
JULIENNE FRY FROM [facility] HERE FOR TRANSPORT TO [facility]. PT IS ALERT, CONFUSED. NO DISTRESS.
--- NOTE | 2017-01-20 03:00 | NUR ---
AKIN YOUNGBLOOD a 81 year old F admitted via wheel chair from the EMERGENCY ROOM as a voluntary admission. Arrived on unit at 0300. ALLERGIES: NKA. Vital signs are: 98.1-98-18 138/89. The [facility] SANJANA ALEXANDER GAVE VERBAL CONSENT FOR the following forms with stated understanding: Authorization For The Release of Medical Information, Clothing List, Consent to Voluntary Admission and Hospitalization, Consent and Release Forms/Receipt of Rights, Acknowledgement of Advance Directive Information, Behavioral Health Consent Form, and Informed Consent of Medications WITNESSED BY SECOND NURSE JENNIFFER CASTRO. Admitted under the services of TALITA LÓPEZ UNDER Dr.PRICE PERAZA,[facility]. A search was conducted and hazardous articles were removed. Client was oriented to the unit. JULIENNE MACIEL ESCORTED TO UNIT BY [facility] NURSE, [employer] AND SECURITY STAFF
[2017-01-20 03:06] VITALS: BP 138/89
--- NOTE | 2017-01-20 04:07 | NUR ---
DR. MAYES MADE AWARE OF CONSULT FOR MEDICAL MANAGMENT CONSULT PLACED UNDER DR. SALDIVAR. CALLED ON NUMBER [phone]. MED REQ AND MEDICAL HX COMPLETED BY DISCHARGE SUMMARY OF 01/16/17
--- NOTE | 2017-01-20 06:42 | NUR ---
PT COOPERATIVE WITH MOST PORTIONS OF ADMISSION, MASKING CONFUSION WITH ALLOF HUMOR. SLEPT 3 HOURS. ALERT TO PERSON ONLY THINKS SHE IS A HOME AT THE [facility]. NO COMBATIVE BEHAVIOR NOTED, PLESANT AND COOPERATIVE WITH ALL ASPECTS OF CARE. BED AND BODY ALARM IN PLACE AND FUNCTIONING PROPERLY.
[2017-01-20 06:47] LABS: THYROID STIM HORMONE (HS) 0.697 uIU/ml (0.358-4.75)
[2017-01-20 07:59] VITALS: BP 106/75
--- NOTE | 2017-01-20 09:14 | NUR ---
AT BEDSIDE TO ASSESS PATIENT.
--- NOTE | 2017-01-20 16:16 | NUR ---
GUARDIAN CALLED AT THIS TIME. UPDATE GIVEN WITH ALL QUESTIONS ANWSERED.
--- NOTE | 2017-01-20 16:24 | NUR ---
AKIN IS ALERT AND VERBAL, ABLE TO MAKE NEEDS AND WANTS KNOWN TO STAFF. UPON INTERACTIONS WITH AKIN, SHE IS PARANOID AND SUSPICIOUS OF STAFF AND PEERS. SHE HAS BEEN IN HER ROOM ALL DAY, REFUSING TO COME OUT DESPITE MUCH ENCOURAGEMENT FROM MULTIPLE STAFF. SHE IS GUARDED AND STATES THIS MORNING DURING MED PASS THAT SHE HAS "BEEN HERE FOR 20 YEARS, WHAT IS GOING ON WITH THIS BUILDING?!" RE-ORIENTATION ONLY MET WITH INCREASED IRRITABILITY. MOOD REMAINS LABILE, RANGING FROM CALM AND COOPERATIVE TO IRRITABILE/GUARDED AND TERSE WITH STAFF. 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 MEDICATION COMPLIANT WITHOUT DIFFICULTY, HOWEVER, PATIENT WAS SUSPICIOUS OF MEDICATIONS AT FIRST. MEDICATION EDUCATION COMPLETED WITH GOOD EFFECT. ACTIVITIES, 1:1 GROUP THERAPY OFFERED THROUGHOUT THE SHIFT MULTIPLE TIMES BY MULTIPLE DIFFERENT STAFF MEMBERS AND REFUSED EVERYTIME. AKIN REMAINS ISOLATIVE/ WITHDRAWN TO ROOM AND STATES "I DON'T LIKE PEOPLE AND I DON'T WANT TO TALK TO OR SEE ANYBODY." GUARDIAN STATES THIS IS NORMAL FOR HER WELL REFUSING MEDICATIONS AND FOOD. APPETITE HAS BEEN POOR THIS SHIFT, REFUSED BREAKFAST AND LUNCH. ACCEPTS FLUIDS WHEN ENCOURAGED BY STAFF. WILL CONTINUE TO ENCOURAGE FLUIDS. FALL PRECAUTIONS MAINTAINED PER POLICY. WILL CONTINUE TO REPORIENT HER NEEDED. NO ADVERSE REACTIONS OR EPS NOTED FROM MEDICATIONS. RESPIRATIONS EASY AND EVEN. NO ACUTE DISTERSS NOTED.
--- NOTE | 2017-01-20 16:42 | NUR ---
DENIES ANY SI/HI. NO HALLUCINATIONS OR DELUSIONS NOTED THIS SHIFT. NO COMBATIVE BEHAVIORS NOTED.
--- NOTE | 2017-01-20 17:34 | NUR ---
Shift chart check completed.
[2017-01-20 20:00] VITALS: BP 120/60
--- NOTE | 2017-01-21 00:26 | NUR ---
24 HR chart check completed.
--- NOTE | 2017-01-21 06:24 | NUR ---
PT PLESANT AND COOPERATIVE, JOKING WITH MILIEU AND NURSING STAFF. SINGING WITH NURSES. ISOLATIVE TO ROOM BUT CONSUMED HS SNACK. REFUSING TO WEAR BRIEFS " YOU KNOW I DONT WEAR THOSE BIG OL THINGS" PT HAVING PERIODS OF INCONTINENCE THROUGHOUT NIGHT AWAKING CONFUSED DURING ONE EPISODE REMOVING ALARM AND WALKING TO BATHROOM. SLEPT 8 HOURS.
[2017-01-21 08:09] VITALS: BP 110/68
[2017-01-21] MEDS ORDERED: TRAZODONE100 MG PO (11:40)
--- NOTE | 2017-01-21 11:41 | NUR ---
RECEIVED MED LIST FROM NURSING FACILITY. MED REC UPDATED. TO BE NOTIFIED PT WAS TAKING TAZODONE AT HOME.
--- NOTE | 2017-01-21 11:43 | NUR ---
Excercise/Trivia Patient refused to join group this morning. Patient refused to allow me to explain anything or encouraging her by slamming the door in my face X2. I will attempt again this afternoon
--- NOTE | 2017-01-21 12:22 | NUR ---
SWS spoke with Guardian. Guardian gave permission for pt. to be admitted to [facility] facility vs. [facility]. Referrals to be sent to [facility] facility, Guardian did not have a preference. Pasrr completed and faxed today.
--- NOTE | 2017-01-21 14:20 | NUR ---
PATIENT IS ALERT AND CONFUSED PER USUAL WITH ST/LT MEMORY DEFICITS. REFUSED AM MEDICATIONS AFTER MULTIPLE ATTEMPTS MADE. MEDICATION COMPLIANT WITH 1300 MEDICATION WITHOUT DIFFICULTY. MOOD REMAINS LABILE, RANGING FROM IRRITABLE AND HOPELESS TO PLEASANTLY CONFUSED. NO HALLUCINATIONS NOTED. PATIENT APPEARS TO BE PARANOID OF STAFF AND MEDICATIONS AT TIMES. APPETITE REMAINS POOR. REFUSED BREAKFAST AND LUNCH. TAKING FLUIDS WELL. NEW ORDERS FROM FOR BOOST SUPPLEMENT TID TO START AT DINNER. CONTINUES TO REFUSE TO COME OUT OF HER ROOM DESPITE MULTIPLE ATTEMPTS BY STAFF THROUGHOUT THE DAY. REFUSES ANY ACTIVITIES IN HER ROOM. STATES "I DON'T WANT NOTHIN, I DON'T WANT TO SEE ANYONE OR TALK TO ANYONE. JUST LEAVE ME ALONE. I'VE BEEN HERE FOR 22 YEARS, YOU THINK I WOULD KNOW WHAT I WANT BY NOW." EMOTIONAL SUPPORT AND REORIENTATION ONLY MET WITH INCREASED IRRITABILITY. QUIET TIME PROVIDED WITH GOOD EFFECT. RESPIRATIONS EASY AND EVEN. NO COMBATIVE BEHAVIORS NOTED.
--- NOTE | 2017-01-21 14:25 | NUR ---
Patient was in bed this pm when approached for Occupational Therapy evaluation. She refused to get out of bed or participate in OT eval this date, but was pleasant. OTR will attempt at a later date. Salud Bryan OTR/[place]
--- NOTE | 2017-01-21 14:32 | NUR ---
PHYSICAL THERAPY PAtient requests no PT at this time. Thank you for this referral. Nelsy Bueno, PT
[2017-01-21 20:06] VITALS: BP 103/66
--- NOTE | 2017-01-22 00:12 | NUR ---
24 HR chart check completed.
--- NOTE | 2017-01-22 06:33 | NUR ---
PT HAS BEEN OBSERVED ON Q 15 MIN CHECKS & HAS SLEPT QUIETY THROUGHOUT THE SHIFT PAST 2229. WAS ASSISTED TO BATHROOM & WAS CONTINENT OF URINE AT THE BEGINNING OF THE SHIFT & INCONTINENT OF URINE THIS AM.
[2017-01-22 08:00] VITALS: BP 112/76
--- NOTE | 2017-01-22 08:15 | NUR ---
Justin Stout Patient absolutely refuses to come to group or even discuss it with you. Patient yells she is not attending and to leave her alone. I will keep attempting to talk to patient
--- NOTE | 2017-01-22 10:19 | NUR ---
PHYSICAL THERAPY Physical Therapy Evaluation completed this date. See eval document for complete details. Will begin PT intervention to address impairments of muscle weakness, decreased functional mobility I, and difficulty ambulating. Recommend d/c back to the [facility] as able. [place] [address] based on chart review and PT cristina Amaro, PT
--- NOTE | 2017-01-22 13:35 | NUR ---
Reading/Reminiscing Patient refused to join in group. Attempted to encourage patient to join,patient stated she hasnt chosent to enjoy anything in 81 years and i needed to shut up and get out. I will attempt again for afternoon
--- NOTE | 2017-01-22 17:17 | NUR ---
NO ACUTE CHANGES FROM YESTERDAY. PT REMAINS LABILE. MEDICATION COMPLIANT WITHOUT DIFFICULTY. WILL CONTINUE TO ENCOURAGE PT TO BE LESS ISOLATIVE. WILL CONTINUE TO ENCOURAGE PT TO ATTEND/PARTICIPATE IN GROUP OR 1:1 THERAPY. CONTINUE Q15 MIN CHECKS.
--- NOTE | 2017-01-22 18:39 | NUR ---
PT UNABLE TO PARTICIPATE IN GROUP DUE TO SLEEPING. SW UNABLE TO WAK PT TO DO 1:1 WITH PT.
[2017-01-22 20:21] VITALS: BP 113/69
--- NOTE | 2017-01-22 21:53 | NUR ---
AMBULATED TO BATHROOM WITH ASSIST OF 2 TO VOID. RETURNING CLIENT TO CHAIR SHE GOT MAD AND DROPPED TO HER KNEES AND THEN ONTO HER BELLY REFUSING TO GET UP. GOT HER INTO ROOM BUT SHE REFUSED TO STAND UP. SHE ARMY CRAWLED ACROSS ROOM TO CHAIR. SHE ROLLED SELF OVER ONTO BUTT AND SAT UP. THEN AGREED TO LET US ASSIST HER TO CHAIR. POSITION OF COMFORT IN CHAIR AND COVERED WITH BLANKETS FOR WARMTH. WILL CONTINUE TO MONITOR
--- NOTE | 2017-01-22 22:42 | NUR ---
24 HR chart check completed.
--- NOTE | 2017-01-23 06:11 | NUR ---
PT WAS INCONTINENT PRIOR TO GOING TO BED. ASSISTED TO A LINDY CHAIR & DID NOT WANT TO RETURN TO HER BED. SLEPT PAST 2300 & WOKE UP @ 0300. AT THIS TIME SHE RETURNED TO HER BED & RETURNED TO SLEEP.
[2017-01-23 08:19] VITALS: BP 137/80
--- NOTE | 2017-01-23 08:21 | NUR ---
Who Am I?/Positive Traits Again this patient is angry and rude when encourage to join group. I again tried to explain the benefits for her to attend groups but patient interupted with " I dont care. I'm not going. I'm staying right here." Patient also made references to wanting to
--- NOTE | 2017-01-23 08:31 | NUR ---
Treatment Team was held with the following: Dr. Slaughter, COVERING MACHINE OPERATOR HELPER, Medical Student, RN, AT, and SW. PASRR was submitted 01/21 and referrals were sent 01/22 to various facilities.
--- NOTE | 2017-01-23 09:46 | NUR ---
PHYSICAL THERAPY Cristy was seen this AM 1:1 for her physical therapy session. Pt did not want any therapy. I ask when i might come back and she said NO not at all. GUNNER DILL CLINICAL PROGRAM COORDINATOR.
--- NOTE | 2017-01-23 13:33 | NUR ---
Exercise/Games Patient did not attend group. I tried to encourage patient to join but patient again yelled "NO!" at me then refused to talk with me at all turning her head away
--- NOTE | 2017-01-23 14:41 | NUR ---
Occupational Therapy evaluation attempted this date with patient seated in chair in her room. After introduction, patient closes eyes and did not want to participate in any activity. OTR will attempt at a later date. Salud Bryan OTR/leann
--- NOTE | 2017-01-23 16:47 | NUR ---
Cristy has been noted to exhibit episodes of irritability throughout the day. She refused her morning medications in spite of encouragement and education provided by staff. She is isolative to her room and refused both breakfast and lunch. She is, however, taking fluids with encouragement. @ times she is suspicious of staff and questions staff as to why they are asking her questions. She uses an angry voice tone when responding to staff, as well. Offers no interacting with peers and declines to attend any scheduled unit activities. Dr Slaughter in today with orders received. Refer to [facility] flowsheet for specific monitoring.
--- NOTE | 2017-01-23 18:33 | NUR ---
SW received copy of PASRR results. Pt approved for [facility] placement. Copy on chart.
[2017-01-23 20:00] VITALS: BP 135/80
--- NOTE | 2017-01-24 00:06 | NUR ---
24 HR chart check completed.
--- NOTE | 2017-01-24 06:55 | NUR ---
PT HAS BEEN OBSERVED N Q 15 MIN CHECKS & HAS SLEPT PAST 0000 WITH 2 BRIEF AWAKENINGS TO GO TO THE BATHROOM & WAS CONTINENT OF URINE.
--- NOTE | 2017-01-24 08:23 | NUR ---
AKIN REFUSES TO ALLOW STAFF TO TAKE VITAL SIGNS @ THIS TIME.
--- NOTE | 2017-01-24 10:27 | NUR ---
PHYSICAL THERAPY Patient presented to therapy in recumbant position in geriatric chair. Patient agreed to ther ex. Patient performed ther ex in seated position x 15 reps per exercise and each LE.
--- NOTE | 2017-01-24 11:15 | NUR ---
AKIN HAS REFUSED HER BREAKFAST AND ALSO REFUSED TO TAKE HER MORNING MEDICATIONS. SHE IS ISOLATIVE TO HER ROOM AND WHEN APPROACHED SHE WAS IRRITABLE AND ANGRY. INCONTINENT OF LARGE AMOUNT OF LOOSE STOOL AND ALSO HAD A LARGE EMESIS OF YELLOW LIQUID @ THIS TIME. WILL INFORM PHYSICIAN AND CONTINUE TO MONITOR.
[2017-01-24 11:25] VITALS: BP 114/72
--- NOTE | 2017-01-24 11:31 | NUR ---
Craft/Being afraid Patient refused again to join group. Patient interupted with a very loud "NO!" when i attempted again to encourage her to come. Patient also then ignored any coversation i attempted
--- NOTE | 2017-01-24 12:09 | NUR ---
Dr. Kaiser notified of emesis and incontinence of loose stool. She reports that she will be in to see Cristy today.
--- NOTE | 2017-01-24 13:10 | NUR ---
[facility] AND DENIED PT FOR ADMISSION.
--- NOTE | 2017-01-24 13:25 | NUR ---
[facility] L[facility] ACCEPTING PT.
--- NOTE | 2017-01-24 15:00 | NUR ---
[facility] INQURING WHEN PT MAY BE READY FOR DISCHARGE. SILVER INFORMED SATURDAY OR SATURDAY. [facility] REQUESTED LOC. SILVER INFORMED HER THAT LOC IS NOT DONE BY THE HOSPITAL . [facility] WILL BE IN TO SEE PT SATURDAY MORNING. FACILITY WILL ACCEPT PT AFTER FACE TO FACE.
[2017-01-24 15:18] LABS: BASO % 0.1 % (0.0-1.0); EOS % 0.1 % (1.0-4.0); HEMATOCRIT 48.5 % (37.0-47.0); HEMOGLOBIN 16.2 g/dl (12.0-16.0); LYMPH # 1.3 10*3/uL (1.3-4.4); LYMPH % 16.8 % (27.0-41.0); MEAN CELL VOLUME 94.4 fl (81.0-99.0); MEAN CORPUSCULAR HGB 31.5 pg (27.0-31.0); MEAN CORPUSCULAR HGB CONC 33.4 g/dl (33.0-37.0); MEAN PLATELET VOLUME 10.2 fl (9.6-12.3); MONO # 0.4 10*3/uL (0.1-1.0); MONO % 5.2 % (3.0-9.0); NEUT # 5.8 10*3/uL (2.3-7.9); NEUT % 77.1 % (47.0-73.0); PLATELET COUNT AUTOMATED 291 10*3/uL (130-400); RED BLOOD COUNT 5.14 10*6/uL (4.10-5.10); RED CELL DISTRI WIDTH 15.6 % (0-14.5); WHITE BLOOD COUNT 7.6 10*3/uL (4.8-10.8)
[2017-01-24 15:34] LABS: ALBUMIN 2.8 gm/dl (3.1-4.5); CREATININE 1.11 mg/dL (0.55-1.02); POTASSIUM 4.9 mmol/L (3.5-5.1); TOTAL PROTEIN 7.1 gm/dL (6.4-8.2)
--- NOTE | 2017-01-24 16:05 | NUR ---
[facility] THAT FACILITY WILL CONSIDER WHEN PT IS STABLE.
--- NOTE | 2017-01-24 16:31 | NUR ---
LAB TESTING COMPLETED AND THIS RN DID RECEIVE A TELEPHONE CALL FROM LAB REGARDING CRITICAL RESULT OF LACTIC ACID LEVEL @ 2.7. DR. ALICEA WAS NOTIFIED AND ORDERS WERE RECEIVED. 2 UNSUCCESSFUL ATTEMPTS MADE TO START IV BY THIS RN. NURSING COUNTER INTELLIGENCE WAS NOTIFIED.
--- NOTE | 2017-01-24 16:55 | NUR ---
IN TO SEE AKIN @ THIS TIME. REQUESTING FOR STAFF TO ENCOURAGE FLUIDS.
--- NOTE | 2017-01-24 17:21 | NUR ---
Lab in to draw a repeat lactic acid but unable to obtain specimen @ this time.
--- NOTE | 2017-01-24 18:57 | NUR ---
Repeat lactic acid level completed by lab and result is 2.2. Dr. Kaiser notified. 2 RNs in @ this time in attempt to obtain IV access.
--- NOTE | 2017-01-24 19:09 | NUR ---
Additional RN's could not obtain IV access @ this time.
--- NOTE | 2017-01-24 19:20 | NUR ---
Sand Mixer Operator and Dr. Willingham were notified of inability to obtain IV access. Dr. Willingham states to encourage fluids @ this time.
[2017-01-24 20:00] VITALS: BP 118/80
--- NOTE | 2017-01-24 21:06 | NUR ---
SPOKE WITH DEDE FROM LAB. REPORTED CRITICAL LACTIC ACID LAB RESULT. REPORTED TO NURSE IN CHARGE OF PATIENT CARE. VERBALIZED UNDERSTANDING OF RESULT.
--- NOTE | 2017-01-24 21:35 | NUR ---
PATIENT MEDICATION COMPLIANT. PATIENT ENCOURAGED AND TOLERATING FLUIDS AT THIS TIME
--- NOTE | 2017-01-25 04:45 | NUR ---
24 HR chart check completed.
--- NOTE | 2017-01-25 05:55 | NUR ---
Q 15 MINUTE CHECKS MAINTAINED. SLEPT > 6 HOURS THIS SHIFT
--- NOTE | 2017-01-25 06:29 | NUR ---
SPOKE WITH LAB REGARDING CRITICAL HIGH LACTIC ACID LEVEL. REPORTED TO PT'S NURSE.
[2017-01-25 06:37] LABS: CREATININE 1.13 mg/dL (0.55-1.02); POTASSIUM 3.9 mmol/L (3.5-5.1)
--- NOTE | 2017-01-25 06:54 | NUR ---
DR. ADAME UPDATED ABOUT LACTIC ACID RESULT. NO NEW ORDERS AT THIS TIME
--- NOTE | 2017-01-25 07:47 | NUR ---
PT LAYING IN BED EYE OPEN, ALERT
[2017-01-25 08:09] VITALS: BP 120/80
--- NOTE | 2017-01-25 08:14 | NUR ---
01/24/2017 Morning: Brittvia Patient did not attend group. When i asked patient to come to group x2 patient just ignored me and kept her blanket over her head
--- NOTE | 2017-01-25 09:00 | NUR ---
ZULAY CAMPBELL FROM [facility] HAS ACCEPTED PT. SW HAD DR. ISAACS SIGN LOC. GOING TO SUBMIT LOC AND HOPSEFULLY IT WILL BE BACK TODAY IF NOT FACILITY WILL ACCCEPT PT ON SATURDAY.
--- NOTE | 2017-01-25 09:20 | NUR ---
Patient in bed with high lactic acid levels. Not appropriate for Occupational Therapy evaluation this date. OTR will attempt at a later date. Salud Bryan OTR/l
--- NOTE | 2017-01-25 11:00 | NUR ---
ICU NURSE STARED AN IV ON LEFT FORARM, THIS NURSE CALLED DR TYLER TO GET FLUID ORDER .
--- NOTE | 2017-01-25 13:14 | NUR ---
Exercise/[place] Patient did not attend group today. Again patient refuses to join
--- NOTE | 2017-01-25 15:01 | NUR ---
PHYSICAL THERAPY Patient refused to be treated today and said," she was not getting out of bed and to leave her alone". PAWAN SOL FIREFIGHTER MARINE
--- NOTE | 2017-01-25 15:35 | NUR ---
Reminiscing Patient refused to come to group but was very nice about it. Patient wanted to know why she was not up,dressed and eating, This is a change from the previous reaction i would receive of anger or of ignoring me.
--- NOTE | 2017-01-25 18:15 | NUR ---
PT IS ALERT TO SELF, CONFUSED, REPEATITIOS, IRRITABLE AT TIMES, MORE BRIGHT UPON APPROACH, DEPERSSED, NO VOICING SI OR HI , DENIES ALL PSYCHOSIS, WITHDRAWN, PT HAS AN IV, MED COMPLIANT TAKES THEM WHOLE, NO OUTBURST
[2017-01-25 20:21] VITALS: BP 116/82
--- NOTE | 2017-01-25 21:32 | NUR ---
PATIENT MEDICATION COMPLIANT. IV INTACT TO LEFT FOREARM. NSS 0.9% INFUSING WITHOUT DIFFICULTY. NO REDNESS, EDEMA, OR INCREASED TEMPERATURE AT IV SITE.
--- NOTE | 2017-01-26 04:13 | NUR ---
24 HR chart check completed.
[2017-01-26 07:08] LABS: BUN 18 mg/dl (7-24); CHLORIDE 104 mmol/L (98-107); POTASSIUM 3.6 mmol/L (3.5-5.1); SODIUM 140 mmol/L (136-145)
[2017-01-26 08:00] VITALS: BP 102/64
--- NOTE | 2017-01-26 12:30 | NUR ---
DR. RINCON ON UNIT TO SEE PATIENT.
--- NOTE | 2017-01-26 14:57 | NUR ---
PATIENT IS ALERT TO SELF AND HANDS ON CARE WITH CONFUSION, ABLE TO VOICE NEEDS. DENIES ANY HALLUCINATIONS/DELUSIONS OR HI/SI. DENIES ANY PAIN. MOOD IS STABLE. PATIENT REFUSEDS TO EAT, FLUIDS ENCOURAGE ALONG WITH BOOST SUPPLEMENTS. PATIENT IS ISOLATIVE TO ROOM. AMBULATES WITH ASSIST. INCONTINENT OF BOWEL AND BLADDER. MEDICATION COMPLIANT AND Q 15 MINUTE SAFETY CHECKS MAINTAINED.
[2017-01-26 20:00] VITALS: BP 121/87
--- NOTE | 2017-01-26 22:50 | NUR ---
PATIENT YELLING OUT FOR HELP. THIS NURSE AND OTHER NURSING STAFF ENTERED ROOM AND PATIENT WAS INCONTINENT OF URINE. PATIENT VERBALIZED THAT SHE WAS DONE USING THE BATHROOM. PATIENT WAS CLEANED AND PROVIDED FRESH LINEN. THIS NURSE FOUND 22 GUAGE HEPLOCK IN BED LINEN THAT WAS IN LEFT FOREARM. IV CATHETER INTACT. PATIENT VOICES NO COMPLAINTS FROM IV CATHETER REMOVAL. FLUIDS ENCOURAGED
--- NOTE | 2017-01-26 23:53 | NUR ---
PATIENT MEDICATION COMPLIANT. VOICES NO COMPLAINTS OF PAIN OR DISCOMFORT AT THIS TIME
--- NOTE | 2017-01-27 04:25 | NUR ---
24 HR chart check completed.
--- NOTE | 2017-01-27 05:50 | NUR ---
Q 15 MINUTE CHECKS MAINTAINED. SLEPT >7 HRS THIS SHIFT
[2017-01-27 06:42] LABS: BUN 16 mg/dl (7-24); CHLORIDE 103 mmol/L (98-107); CREATININE 0.85 mg/dL (0.55-1.02); POTASSIUM 3.5 mmol/L (3.5-5.1); SODIUM 140 mmol/L (136-145)
[2017-01-27 08:06] VITALS: BP 110/67
--- NOTE | 2017-01-27 12:26 | NUR ---
PT REFUSING LUNCH, REFUSING LIQUIDS, BS WAS 68 TRIED GIVING ORANGE JUICE PT REFUSED AND LAYING PRETENDING SHE;S AICHA. NOTIFIED DR ALICEA OF BS AND REFUSAL
--- NOTE | 2017-01-27 14:25 | NUR ---
RETOOK PT BLOOD SUGAR IT WAS 87 SHE DRANK ORANGE JUICE AND HER BOOST. PT IS INCONTINENT IN HER BED, REFUSING TO GET UP AND REFUSING CARE. WILL TRY AGAIN
--- NOTE | 2017-01-27 16:28 | NUR ---
WITHDRAWN TO ROOM, ISOLATIVE, REFUSES TO EAT, OR GET UP OR TO ATTEND TO ADL'S, ATTEMPTED SEVERAL TIMES TO CLEAN PT AND CHANGE HER, SHE GETS ANGRY AND YELLSING OUT . REFUSING MEDICATIONS,
--- NOTE | 2017-01-27 18:15 | NUR ---
INCONTINENT OF URINE. COMPLETE BEDBATH DONE. CLIENT PARTICIPATED IN BATH WITHOUT PROBLEMS. POSTION OF COMFORT. CLIENT PLEASENT DURING BATH. DRANK SOME BOOST AND DRANK GINGERALE.
[2017-01-27 20:00] VITALS: BP 118/80
--- NOTE | 2017-01-27 21:49 | NUR ---
HS BEDSIDE GLUCOSE 84
--- NOTE | 2017-01-27 22:07 | NUR ---
24 HR chart check completed.
--- NOTE | 2017-01-28 01:53 | NUR ---
SET OFF ALARM REPOSITIONING SELF. PO FLUIDS PROVIDED. ASSISTED TO POSITION OF COMFORT.
--- NOTE | 2017-01-28 02:45 | NUR ---
SW NOTIFIED LIFETEAM OF DESTINTAION CHANGE FOR PT. LIFETEAM STILL CAN TAKE AROUND 5:30PM TO [place].
--- NOTE | 2017-01-28 06:25 | NUR ---
PT HAS BEEN OBSERVED ON Q 15 MIN CHECKS & HAS REMAINED IN BED SINCE THE ONSET OF THE SHIFT. REFUSED HS SNACK. COMPLIANT WITH HS MEDICATIONS. SLEPT PAST 2100.
--- NOTE | 2017-01-28 06:53 | NUR ---
AM BEDSIDE GLUCOSE 81
[2017-01-28 07:54] VITALS: BP 110/64
[2017-01-28] MEDS ORDERED: EXELON13.3 MG/21 T (09:09)
[2017-01-28] MEDS ORDERED: MEMANTINE HCL10 MG PO (09:09)
[2017-01-28] MEDS ORDERED: MIRTAZAPINE15 M2 PO (09:09)
[2017-01-28] MEDS ORDERED: DIVALPROEX SOD250 MG PO (09:09)
--- NOTE | 2017-01-28 10:38 | NUR ---
DR. VINSON NOTIFIED OF PATIENT BEING DISCHARGED TODAY.
--- NOTE | 2017-01-28 11:37 | NUR ---
PHYSICAL THERAPY Continue with original plan of care toward original goals extended to 02/09/17. Nelsy Bueno,PT
--- NOTE | 2017-01-28 11:46 | NUR ---
Exercise/January Facts and Trivia Patient did not attend group this morning. I tried to encourage patient to come to group,patient interupted me and stated "Why do you even ask me? I'm not coming and you know it!" Then proceeded to ignore me.
--- NOTE | 2017-01-28 12:18 | NUR ---
DR. VALDOVINOS NOTIFIED OF PATIENT BEING DISCHARGED TODAY.
--- NOTE | 2017-01-28 12:45 | NUR ---
VM FROM FROM [facility]. LOC IS BACK AND TRANSPROTATIO CAN BE ARRANGED. SW RETURNED CALL AND LEFT VM THAT TRANSPORTATION WILL BE ARRANGED TO [facility].
--- NOTE | 2017-01-28 13:00 | NUR ---
SILVER TRIED TO [facility] BUT HE IS OUT OF OFFICE UNTIL SATURDAY. MESSAGE WASTAKEN FOR HIM.
--- NOTE | 2017-01-28 14:30 | NUR ---
SILVER CALLED [facility]. LEFT VM. SILVER CALLED [facility] AND ASKED TO SPEAK WITH [facility]. SENIOR TAX ANALYST STATED THAT [facility] WAS AT ANOTHER HOSPITAL AND WOULD CALL IN A FEW MINUTES.
--- NOTE | 2017-01-28 14:44 | NUR ---
PHYSICAL THERAPY PATIENT REFUSED PHYSICAL THERAPY 2 X s TODAY. PAWAN SOL STORE OPERATIONS MANAGER
--- NOTE | 2017-01-28 16:22 | NUR ---
NURSE TO NURSE PROVIDED TO ANG LANDRY REGARDING PATIENT'S OVERALL CARE NEEDS, VITALS, CODE STATUS AND DOUGH PUNCHER TIME TO LEAVE HOSPITAL. ALL QUESTIONS ANSWERED AT THIS TIME.
[2017-01-28 20:00] VITALS: BP 110/65
--- NOTE | 2017-01-28 21:01 | NUR ---
HS BEDSIDE GLUCOSE 101
--- NOTE | 2017-01-28 21:37 | NUR ---
PT WAS DISCHARGED WITH 2 LIFE TEAM STAFF. LEFT @ 2135 VIA STRETCHER WITH ALL PERSONAL BELONGING. PT CO-OPERATIVE. PM MEDICATIONS WERE GIVEN PRIOR TO DISCHARGE.
--- NOTE | 2017-01-29 07:56 | NUR ---
PHYSICAL THERAPY CO-SIGN I approve of the Phyical Therapy notes written above. ZULLY BISHOP PT
--- NOTE | 2017-01-29 09:10 | NUR ---
SW CALLED [facility] TO ARRANGED TRANSPORATION FOR DISCHARGE. BOILER OPERATOR AROUND 5:30PM. NURSIG NOTIFIED OF BOILER OPERATOR TIME.
--- NOTE | 2017-01-29 09:11 | NUR ---
SW RECEIVED MESSAGE FROM NURSING THAT [facility] DID NOT KNOW OF REFERRAL.
--- NOTE | 2017-01-29 09:13 | NUR ---
[facility] RETURNED VCALL. [facility] IS NOT TAKING BEHAVIORS ANYMORE. SISTER FACILITY [facility] IS. SW WILL NOTIFY GUARDIAN OD CHANGE OF FACILITY. [facility] APOLOGIZED FOR NOT MAKING IT CLEAR WHICH FACILITY PT WAS GOING TO .
--- NOTE | 2017-01-29 14:51 | NUR ---
SILVER received VM from [facility] Hotline - guardian. SW returned call and left VM that Pt was transferred to [facility] facility.
--- NOTE | 2017-01-30 13:20 | NUR ---
Timing Adjuster Note: faxed paperwork for signatures today to her guardian.
== END 2017-01-28 21:35 | disposition other institution (70) | DRG 56 ==
LOC: ED 18:57 → 3N 01-20 02:50
PROVIDERS: Emergency Medicine Emergency Medical Services; Internal Medicine; Nurse Practitioner Adult Health; ADMIT Psychiatry & Neurology Psychiatry
DX: G30.9 Alzheimer's disease, unspecified (principal); N17.0 Acute kidney failure with tubular necrosis; E43 Unspecified severe protein-calorie malnutrition; E87.2 Acidosis; F33.9 Major depressive disorder, recurrent, unspecified; F23 Brief psychotic disorder; I50.9 Heart failure, unspecified; F02.80 Dementia in other diseases classified elsewhere, unspecified severity, without behavioral disturbance, psychotic disturbance, mood disturbance, and anxiety; I11.0 Hypertensive heart disease with heart failure; E11.65 Type 2 diabetes mellitus with hyperglycemia; I73.9 Peripheral vascular disease, unspecified; R29.6 Repeated falls; I25.10 Atherosclerotic heart disease of native coronary artery without angina pectoris; K57.90 Diverticulosis of intestine, part unspecified, without perforation or abscess without bleeding; F41.1 Generalized anxiety disorder; E78.00 Pure hypercholesterolemia, unspecified; E53.8 Deficiency of other specified B group vitamins; R26.81 Unsteadiness on feet; E55.9 Vitamin D deficiency, unspecified; J30.2 Other seasonal allergic rhinitis; K21.9 Gastro-esophageal reflux disease without esophagitis; Z91.14 Patient's other noncompliance with medication regimen; Z79.899 Other long term (current) drug therapy; Z79.82 Long term (current) use of aspirin; Z86.73 Personal history of transient ischemic attack (TIA), and cerebral infarction without residual deficits; I25.2 Old myocardial infarction; Z80.0 Family history of malignant neoplasm of digestive organs; Z68.33 Body mass index [BMI] 33.0-33.9, adult